=== PATIENT | female | born 1945 | race Caucasian/White ===

== ENCOUNTER → 2020-10-22 10:45 | Outpatient (CLI) | payer MEDICARE, SELFPAY ==
--- NOTE | ~2020-10-22 | MM_ITS ---
EXAMINATION: MM screening yasmeen BI w gigi HISTORY: Screening mammogram TECHNIQUE: Craniocaudal and mediolateral oblique 3-D tomosynthesis images were obtained and synthetic 2-D images were generated. CAD analysis was submitted and interpreted. COMPARISON: 10/02/2019, 08/22/2018, 08/17/2017 bilateral digital screening mammogram examinations BREAST PARENCHYMAL COMPOSITION: There are scattered areas of fibroglandular density. FINDINGS: Scattered bilateral benign calcifications are again noted. 3.6 x 5.8 mm circumscribed low-density opacity in the lower outer right breast. The low-density and c ircumscribed margins and halo sign are most consistent with benign process. There is no evidence of suspicious mass, calcification, or architectural distortion to suggest malig rigo in either breast. There has been no suspicious interval change. IMPRESSION: 1. No mammographic evidence of malignancy 2. Recommend routine screening mammography in one year. BI-RADS Category 2: Benign finding(s) Reviewed, dictated and finalized at location A. REPAIRER
== END ==
PROVIDERS: PCP Physician Assistant; Visit Provider Physician Assistant
DX: Z12.31 Encounter for screening mammogram for malignant neoplasm of breast (principal)
CPT/HCPCS: 77063; 77067

== ENCOUNTER → 2021-12-25 10:10 | Outpatient (CLI) | payer MEDICARE, SELFPAY ==
--- NOTE | ~2021-12-25 | MM_ITS ---
EXAMINATION: MM screening yasmeen BI w gigi HISTORY: Screening mammogram TECHNIQUE: Craniocaudal and mediolateral oblique 3-D tomosynthesis images were obtained and synthetic 2-D images were generated. CAD analysis was submitted and interpreted. COMPARISON: 10/22/2020, 10/02/2019, 08/22/2018 bilateral screening mammogram examinations BREAST PARENCHYMAL COMPOSITION: There are scattered areas of fibroglandular density. FINDINGS: 5 x 7 x 8 mm low-density circumscribed opacity is noted in the inner aspect of the lower ou ter quadrant of the right breast; the mammographic features suggest benign process; this is relativel y stable since 10/22/2020.. Scattered bilateral benign calcifications. There is no evidence of suspicious mass, calcification, or architectural distortion to suggest malignancy in either breast. There has been no suspicious interv al change. IMPRESSION: 1. No mammographic evidence of malignancy. 2. Recommend routine screening mammography in one year. BI-RADS Category 2: Benign finding(s). Reviewed, dictated and finalized at location C.
== END ==
PROVIDERS: PCP Family Medicine; Visit Provider Family Medicine
DX: Z12.31 Encounter for screening mammogram for malignant neoplasm of breast (principal)
CPT/HCPCS: 77063; 77067

== ENCOUNTER 2022-03-12 12:56 | Emergency (ER) | payer MEDICARE, SELFPAY ==
[2022-03-12 13:02] VITALS: BP 149/89; PULSE 88; RESP 20; TEMP 36.7; O2SAT 99
--- NOTE | 2022-03-12 13:08 | ED.SKABFB ---
HPI - Skin/Abscess/Foreign Bdy General Chief complaint: Skin/Abscess/Foreign Body Stated complaint: RASH Time Seen by Provider: 03/12/22 13:08 Source: patient Mode of arrival: ambulatory Limitations: no limitations History of Present Illness HPI narrative: 76-year-old female presented for complaint of rash to both arms for about 3 days. She denies changes to soap, detergent, lotion etc. She denies any known exposure to poison shanell. She has applied bojx-rug-cfzzjxh cream. Endorses itching, denies burning or drainage, lip or tongue swelling, shortness of breath, nausea, vomiting, fevers or chills complaint: rash Related Data Allergies Allergy/AdvReac Type Severity Reaction Status Date / Time diltiazem Allergy Unknown Unknown Verified 03/12/22 13:02 Penicillins Allergy Unknown Unknown Verified 03/12/22 13:02 prednisone Allergy Unknown Unknown Verified 03/12/22 13:02 Contrast Media Allergy Mild RASH Uncoded 03/12/22 13:02 Review of Systems Review of Systems: ROS negative except as stated in HPI. [facility] Past Medical History Medical History (Updated 03/12/22 @ 13:39 by Yanely Saenz APRN) Anxiety Benign hypertension (~06/13/18) Ganglion cyst of finger of right hand Hypertension Shingles Surgical History Surgical History History of cataract extraction Hx of hysterectomy, total Hx of tonsillectomy Family History Family History Father Hypertension Family history of malignant neoplasm Grandparent Hypertension Mother Family history of malignant neoplasm of uterus Other Carcinoma of colon Family history of malignant neoplasm of breast in first degree relative Social History Social History Smoking status: Never smoker Second hand tobacco smoke exposure: No Alcohol intake: current Alcohol use details: consumes 1 glass of wine rarely Substance use: never Substance use type: does not use Gender identity (if verbalized by the patient): Female Comments At time of signature, I have reviewed and agree with nursing past medical, surgical, social and family history unless otherwise noted. Please see nursing chart for further information. There is no relevant family history pertinent to the presenting complaint Exam Narrative: GENERAL: Well-appearing EYES: conjunctivae clear, and EOMI. ENT: Mucous membranes moist. Oropharynx without edema, erythema or lesions. NECK: Supple. No lymphadenopathy CHEST: Clear to auscultation. No respiratory distress. HEART: Regular rate and rhythm. SKIN: Warm, dry. Diffuse patches of erythematous circular lesions to bilateral forearms, left hand with mild swelling and many skin colored papules to dorsal surface c/w dermatitis. Left inner thigh with flat erythematous macular rash not c/w rash to arms. NEURO: Alert and oriented x3. PSYCH: Normal mood and affect Course Course Emergency Course: Patient is aware of diagnosis, understands and agrees to treatment plan. Anticipatory guidance given. Patient agrees to follow-up as directed and is aware of reasons to seek care at the emergency department. Portions of this record may have been created with voice recognition software Level of Care: Express Care Visit Vital Signs Vital signs: Reviewed MDM - Skin/Abscess/Foreign Bdy MDM Narrative Medical decision making narrative: Does not appear at this time to be erythema multiforme, bullous, SJS, TEN; Patient looks well, nontoxic no tongue, lip edema or other mucosal involvement, appropriate for initial outpatient treatment; She endorses allergy to prednisone. We discussed treatment with triamcinolone ointment and Benadryl and she will monitor and f/u with pcp or go to the ER/return if sx persist/worsen. Instructed patient to go to nearest ER immediately for any worsening symptoms including
== END 2022-03-12 13:35 | disposition home or self-care (01) ==
PROVIDERS: Emergency Provider Nurse Practitioner Family; PCP Family Medicine
DX: L25.9 Unspecified contact dermatitis, unspecified cause (principal); I10 Essential (primary) hypertension; Z98.49 Cataract extraction status, unspecified eye; F41.9 Anxiety disorder, unspecified
CPT/HCPCS: 99213; G0463

== ENCOUNTER → 2022-06-30 10:55 | Outpatient (CLI) | payer MEDICARE, SELFPAY ==
--- NOTE | ~2022-06-30 | DEXA_ITS ---
Bone Density Report Name: ENDY ELMORE Age: 76 Sex: Female Ethnicity: White Date of : 1945 Indication: osteopenia; parental hip fracture; height loss; hysterectomy; postmenopausal Referring Provider: MARELY VILLAGOMEZ Study: Bone densitometry was performed. Exam Date: June 30, 2022 Accession number: [id number] Bone Density: Region BMD T-score Z-score Classification AP Spine (L1-L4) 0.993 -0.5 1.9 Normal Femoral Neck (Left) 0.802 -0.4 1.7 Normal Total Hip (Left) 0.872 -0.6 1.2 Normal Femoral Neck (Right) 0.673 -1.6 0.5 Osteopenia Total Hip (Right) 0.747 -1.6 0.2 Osteopenia Total Hip Mean 0.810 -1.1 0.7 Osteopenia World Health Organization criteria for BMD impression classify patients as: Normal (T-score at or above -1.0), Osteopenia (T-score between -1.0 and -2.5), or Osteoporosis (T-score at or below -2.5). 10-year Fracture Risk(1): Major Osteoporotic Fracture 19% Hip Fracture 9.5% Reported Risk Factors: [place] (), Neck BMD=0.673, BMI=30.4, parental fracture (1) FRAX(R) Version 3.08. Fracture probability calculated for an untreated patient. Fracture probability may be lower if the patient has received treatment. Previous Exams: Region Exam Age BMD T-score BMD Change BMD Change Date g/cm2 vs Baseline vs Previous AP Spine(L1-L4) 06/30/2022 76 0.993 -0.5 -0.042* 0.021 07/04/2012 66 0.972 -0.7 -0.064* 0.037* 06/20/2010 64 0.935 -1.0 -0.101* -0.101* 06/08/2007 61 1.036 -0.1 Total Hip(Left) 06/30/2022 76 0.872 -0.6 -0.031* 0.024 07/04/2012 66 0.848 -0.8 -0.054* 0.005 06/20/2010 64 0.843 -0.8 -0.060* -0.060* 06/08/2007 61 0.902 -0.3 Total Hip(Right) 06/30/2022 76 0.747 -1.6 -0.100* -0.009 07/04/2012 66 0.755 -1.5 -0.092* -0.035* 06/20/2010 64 0.791 -1.2 -0.056* -0.056* 06/08/2007 61 0.847 -0.8 *Denotes significance at 95% confidence level, LSC for AP Spine = 0.022 g/cm2, LSC for Total Hip = 0.027 g/cm2 Clinical Information Provided by Patient: Parent has had a hip fracture Has the following medical conditions: Hysterectomy Patient maximum height was 62 Menopause Age: 58 No regular weight bearing exercise Does not regularly consume dairy products Drinks caffeinated beverages Onset of menses at age 14 Number of children 0 Missed period for more than 6 months in a row
== END ==
PROVIDERS: PCP Family Medicine; Visit Provider Family Medicine
DX: Z78.0 Asymptomatic menopausal state (principal); M85.851 Other specified disorders of bone density and structure, right thigh
CPT/HCPCS: 77080

== ENCOUNTER → 2023-03-16 07:16 | Outpatient (CLI) | payer MEDICARE, SELFPAY ==
--- NOTE | ~2023-03-16 | MM_ITS ---
EXAMINATION: MM screening yasmeen BI w gigi HISTORY: Screening mammogram TECHNIQUE: Craniocaudal and mediolateral oblique 3-D tomosynthesis images were obtained and synthetic 2-D images were generated. CAD analysis was submitted and interpreted. COMPARISON: 12/21/2021, 10/22/2020, 10/02/2019 bilateral screening mammogram examinations BREAST PARENCHYMAL COMPOSITION: There are scattered areas of fibroglandular density. FINDINGS: Interval decreased size of circumscribed 7 mm opacity of 12/21/2021 2 approximately 4.5 mm d imension, lower outer quadrant right breast. New circumscribed approximate 4.5 mm opacity in the inner aspect of the very posterior lower inner qu adrant of the right breast. New approximately 3 mm circumscribed opacity in the lower inner quadrant of the left breast. Bilatera l diagnostic mammography and breast ultrasound examination are recommended. Scattered bilateral benign calcifications are again noted. No architectural distortion, skin thickeni ng or retraction is detected. IMPRESSION: 1. New bilateral breast masses 2. Bilateral diagnostic mammography and breast ultrasound examination are recommended. BI-RADS Category 0: Incomplete: Needs additional imaging evaluation. Reviewed, dictated and finalized at location A. IMPRESSION: 1. New bilateral breast masses 2. Bilateral diagnostic mammography and breast ultrasound examination are recom mended. BI-RADS Category 0: Incomplete: Needs additional imaging evaluation.
== END ==
PROVIDERS: PCP Family Medicine; Visit Provider Physician Assistant Medical
DX: Z12.31 Encounter for screening mammogram for malignant neoplasm of breast (principal); R92.8 Other abnormal and inconclusive findings on diagnostic imaging of breast
CPT/HCPCS: 77063; 77067

== ENCOUNTER 2023-03-19 15:05 | Emergency (ER) | payer MEDICARE, SELFPAY ==
--- NOTE | ~2023-03-19 | XR_ITS ---
EXAM: XR knee RT min 4V DATE: 03/19/2023 16:18 HISTORY: posterior knee pain, STEPPED OFF PORCH YESTERDAY . COMPARISON: None available. FINDINGS: Decreased mineralization. No fracture or dislocation. No lytic or blastic lesion. Mild tri compartmental osteoarthritis. Small joint effusion. No erosion or periosteal change. Soft tissues wit hin normal limits. IMPRESSION: No acute osseous finding in the right knee. Reviewed, dictated and finalized at location K.
[2023-03-19 15:20] VITALS: BP 152/87; PULSE 78; RESP 16; TEMP 36.1; O2SAT 99
--- NOTE | 2023-03-19 15:52 | ED.LOWEXIN ---
HPI - Extremity Injury (Lower) General Chief Complaint: Extremity Injury, Lower Stated Complaint: right leg pain Time Seen by Provider: 03/19/23 15:27 History of Present Illness HPI Narrative: 77-year-old female reports for evaluation of posterior right knee pain that started 6 weeks ago. Patient states she has had a dull ache intermittently in both of her knees, worse in her right. States approximately 2 days ago, she stepped off of a stair and felt a pain in the back of her knee. Reports today she was sliding into a ochoa and felt another pain in the back of her knee, since then she has not been able to ambulate due to pain that worsens with standing. She reports taking 1 dose of Tylenol and 1 dose of Aleve daily without relief. She denies knee swelling, fever, body aches or chills, history of knee surgery. She has not been evaluated by an orthopedist in the past. Last dose of Tylenol today was 930 this morning. Related Data Allergies Allergy/AdvReac Type Severity Reaction Status Date / Time diltiazem Allergy Unknown Unknown Verified 03/19/23 15:52 Penicillins Allergy Unknown Unknown Verified 03/19/23 15:52 prednisone Allergy Unknown Unknown Verified 03/19/23 15:52 Contrast Media Allergy Mild RASH Uncoded 03/19/23 15:52 Review of Systems Review of Systems: CONSTITUTIONAL: Denies fever, chills EYES: Denies visual changes, redness, or discharge. ENT: Denies rhinorrhea, congestion, sore throat, or otalgia. CARDIOVASCULAR: Denies chest pain, palpitations, or edema. RESPIRATORY: Denies cough or dyspnea. GASTROINTESTINAL: Denies abdominal pain, nausea, vomiting, or diarrhea. GENITOURINARY: Denies dysuria or hematuria. SKIN: Denies rash or itching. MUSCULOSKELETAL: See HPI NEUROLOGIC: Denies headache, numbness, dizziness, or weakness. PSYCHIATRIC: Denies anxiety or depression. [facility] Past Medical History Medical History (Updated 03/19/23 @ 16:40 by Nita Weaver PA-C) Anxiety Benign hypertension (~06/13/18) Ganglion cyst of finger of right hand Hypertension Shingles Surgical History Surgical History History of cataract extraction Hx of hysterectomy, total Hx of tonsillectomy Family History Family History Father Hypertension Family history of malignant neoplasm Grandparent Hypertension Mother Family history of malignant neoplasm of uterus Other Carcinoma of colon Family history of malignant neoplasm of breast in first degree relative Social History Social History Smoking status: Never smoker Second hand tobacco smoke exposure: No Alcohol intake: current Alcohol use details: consumes 1 glass of wine rarely Substance use: never Substance use type: does not use Lack of Transportation: No Lack of Food: Never True Current Housing: I Have Housing Concerned About Future Housing: No Difficulty Paying Gas/Electric Bills: No Difficulty Paying for Meds: No Currently Unemployed: No Education: High School Diploma/GED Difficulty w/ Childcare or Family Care: No Living arrangements: with family Gender identity (if verbalized by the patient): Female Sexual Orientation (if Verbalized by the Patient): Straight or Heterosexual Spiritual care concerns: No Agree to blood products: Yes Exam Narrative: GENERAL: Well-appearing, in no acute distress. HEAD: Normocephalic NECK: Supple. CHEST: No respiratory distress. Clear to auscultation, no adventitious breath sounds. HEART: Regular rate and rhythm. No murmur heard. Normal peripheral pulses. EXTREMITIES: Right knee with tenderness to the popliteal fossa. No tenderness to remainder of knee or lower extremity. No effusion or overlying skin changes, no warmth or erythema. Full active and passive range of motion of knee. Negative posterior and anterior dr
[2023-03-19] MEDS: ACETAMINOPHEN 500 MG TABLET 1000 MG PO (15:59)
--- NOTE | 2023-03-19 16:07 | PC.NURSE ---
Pt to XRAY via W/C at this time.
[2023-03-19 16:56] VITALS: BP 147/89; PULSE 74; RESP 18; O2SAT 99
== END 2023-03-19 16:58 | disposition home or self-care (01) ==
PROVIDERS: Emergency Provider Physician Assistant; PCP Family Medicine
DX: M17.11 Unilateral primary osteoarthritis, right knee (principal); I10 Essential (primary) hypertension; Z98.49 Cataract extraction status, unspecified eye; Z90.710 Acquired absence of both cervix and uterus
CPT/HCPCS: 73564; 99283; A9270

== ENCOUNTER → 2023-04-13 08:20 | Outpatient (CLI) | payer MEDICARE, SELFPAY ==
--- NOTE | ~2023-04-13 | MMUS_ITS ---
EXAMINATION: MM diagnostic yasmeen BI w gigi, US breast BI limited HISTORY: New bilateral breast masses reported on 03/16/2023 screening mammogram: Lower inner right and left breast TECHNIQUE: Additional 3-D tomosynthesis images of both breasts were performed and synthetic 2-D image s were generated. CAD analysis was submitted and interpreted. High resolution bilateral targeted han st ultrasound was performed. COMPARISON: 03/16/2022 bilateral screening mammogram FINDINGS: MAMMOGRAPHIC FINDINGS: Circumscribed approximately 4 mm mass in the posterior lower inner right breast; the low-density and circumscribed margins suggest benign process. Circumscribed 3 mm low-density opacity in the anterior lower inner left breast, with benign mammograp hic features. ULTRASOUND: Right breast: 6:00 3 cm from nipple: Circumscribed 4.5 x 5 x 4.6 mm sonolucency without internal vascularity or pos terior shadowing, likely a small cyst Left breast: 9:00 5 cm from nipple: 3 x 2.6 x 3.3 mm circumscribed sonolucency without posterior shadowing, consis tent with small cyst IMPRESSION: 1. Benign findings 2. Routine annual mammographic screening is recommended BI-RADS Category 2: Benign finding(s). Reviewed, dictated and finalized at location A. IMPRESSION: 1. Benign findings 2. Routine annual mammographic screening is recommended BI-RADS Category 2: Benign finding(s).
== END ==
PROVIDERS: PCP Family Medicine; Visit Provider Physician Assistant
DX: R92.8 Other abnormal and inconclusive findings on diagnostic imaging of breast (principal)
CPT/HCPCS: 76642; 77062; 77066; G0279

== ENCOUNTER 2023-05-13 09:00 | Outpatient (RCR) | payer MEDICARE, SELFPAY ==
--- NOTE | 2023-04-15 14:55 | PTOPEVAL1 ---
Assessment and note entered by Eladio Samano, PT Evaluation Information Assessment Status Evaluation Diagnosis OA of R knee Onset 01/02/23 Subjective Information Reports that she is unsure how she hurt her knee or what caused it. She recently received a cortisone injection and notes that she saw immediate improvement. States that she feels she is nearly back to normal function but is concerned about the injection wearing off and pain returning . Reported Pain Level Pain Score 1: Self Report Additional Pain Score Comments Left knee anterior medial knee Assessment PT Clinical Summary Patient presents with signs and symptoms consistent with OA of lesly knees. Objectively her R knee is showing better motion and stability than uninvolved which is likely transferring stress onto R knee and provocation symptoms and irritation in R knee. I feel she significantly benefited from cortisone injection and will benefit from skilled therapy to address noted mm and mobility deficits for custodial success and prevention of serious injury of R knee. Plan of Care Interventions Electrical Stimulation,Manual Therapy,Neuro Re- education,Therapeutic Activities,Therapeutic Exercise PT Services Indicated Yes These treatments will address the objective and functional deficits as defined above. The patient will be advanced safely and appropriately in order for the patient to progress towards his/her prior level of function. Additional exercises will be introduced and as well as a comprehensive home exercise program upon discharge, if needed, ?to ensure carryover of functional gains achieved in the clinic. This treatment plan has been reviewed and agreement upon by the patient.
--- NOTE | 2023-04-15 14:56 | OPREHPOC ---
Outpatient Therapy Plan of Care This is a Multidisciplinary Plan of Care that may contain components documented by all disciplines (PT, OT, and ST.) PT Problem 1 PT Problem #1 Knowledge Deficit PT Goal 1 Goal Patient will be independent with hip mobility and knee strength HEP Target Visit 8 PT Problem 2 PT Problem #2 Impaired Range of Motion PT Goal 1 Goal Demonstrate 0 degrees terminal L knee extension to prevent off load of R knee Target Visit 8 PT Problem 3 PT Problem #3 Impaired Strength PT Goal 1 Goal Improve gross lesly knee strength to 5/5 to prevent mm imbalance during functional activity PT Problem 4 PT Problem #4 Impaired Functional Mobil PT Goal 1 Goal Demonstrate ability to reciprocally ascend and descend stairs pain free to do laundry in home Target Visit 8
--- NOTE | 2023-05-13 10:09 | PTOPDC ---
Assessment and note entered by Eladio Samano, PT Evaluation Information Assessment Status Discharge Diagnosis OA of R knee Onset 01/02/23 Subjective Information Reports that overall she feels pretty good. Therapy has really helped with walking and ADL. She only has issues anymore if she does a lot of gardening including bending and lifting. Stairs are much better with decreased pain. She is overall sleeping a lot better as well. Very satisfied with progress. Feels ready for discharge at this time. Reported Pain Level Pain Score 0: Self Report Assessment PT Clinical Summary Patient made excellent progress with skilled therapy at this time. She demonstrated improved gait cycle, functional mobility on stairs and squatting, pain reduction, and strength. She continues to show some deficits in L knee terminal extension, but these may be functional at this time. Overall she is suitable for discharge to [facility] at this time. Plan of Care PT Services Indicated Yes
--- NOTE | 2023-05-13 10:12 | OPREHPOC ---
Outpatient Therapy Plan of Care This is a Multidisciplinary Plan of Care that may contain components documented by all disciplines (PT, OT, and ST.) PT Problem 1 PT Problem #1 Knowledge Deficit PT Goal 1 Goal Patient will be independent with hip mobility and knee strength HEP Target Visit 8 Progress Met PT Problem 2 PT Problem #2 Impaired Range of Motion PT Goal 1 Goal Demonstrate 0 degrees terminal L knee extension to prevent off load of R knee Target Visit 8 Progress Partially Met Comment Demonstrate -2 degres of L knee extension PT Problem 3 PT Problem #3 Impaired Strength PT Goal 1 Goal Improve gross lesly knee strength to 5/5 to prevent mm imbalance during functional activity Progress Met PT Problem 4 PT Problem #4 Impaired Functional Mobil PT Goal 1 Goal Demonstrate ability to reciprocally ascend and descend stairs pain free to do laundry in home Target Visit 8 Progress Met
== END 2023-05-13 13:21 | disposition home or self-care (01) ==
LOC: ANHPT 09:00
PROVIDERS: PCP Family Medicine; Visit Provider Orthopaedic Surgery
DX: M17.11 Unilateral primary osteoarthritis, right knee (principal)
CPT/HCPCS: 97110; 97140; 97161; 97530

== ENCOUNTER 2023-10-03 08:04 | Emergency (ER) | payer MEDICARE, SELFPAY ==
--- NOTE | ~2023-10-03 | XR_ITS ---
EXAMINATION: XR elbow LT min 3V DATE: 10/03/2023 08:57 INDICATION: Left elbow injury. TECHNIQUE: 4 views of left elbow were obtained. COMPARISON: None. FINDINGS: There is a fracture involving the lateral half of the articular surface of radial head with up to 2 mm impaction. There is mild elbow joint osteoarthritis. There is an elbow joint effusion. IMPRESSION: 1. Radial head fracture. 2. Mild elbow joint osteoarthritis. 3. Elbow joint effusion. Reviewed, dictated and finalized at location A. RPRISE ACCOUNT EXECUTIVE
--- NOTE | 2023-10-03 08:11 | ED.UPPEXIN ---
HPI - Extremity Injury (Upper) General Chief Complaint: Extremity Injury, Upper <Katrina Dimas NP - Last Filed: 10/03/23 10:13> Stated Complaint: L ARM INJURY <Katrina Dimas NP - Last Filed: 10/03/23 10:13> Time Seen by Provider: 10/03/23 08:11 <Katrina Dimas NP - Last Filed: 10/03/23 10:13> Source: patient <Katrina Dimas NP - Last Filed: 10/03/23 10:13> Mode of arrival: ambulatory <Katrina Dimas NP - Last Filed: 10/03/23 10:13> Limitations: no limitations <Katrina Dimas NP - Last Filed: 10/03/23 10:13> History of Present Illness HPI narrative: 77-year-old female presents with complaint of left elbow pain and swelling. Patient reports yesterday she was walking and [employer] parking lot and slipped on ice, fell down on to left arm. Reports yesterday she could not move her left arm at all due to pain but is somewhat better today. Distal neurovascularly intact. Patient denies hitting head. Was able to get up on her own. Patient requesting x-ray to make sure she does a fracture. All systems reviewed and negative except as noted above. <Katrina Dimas NP - Last Filed: 10/03/23 10:13> Related Data Home Medications: Home Medications Medication Instructions Recorded Confirmed calcium carbonate 500 mg calcium 500 mg PO DAILY 04/13/23 10/03/23 (1,250 mg) chewable tablet (Calcium 500) mecobalamin (vitamin B12) 1,000 1,000 mcg PO DAILY 04/13/23 10/03/23 mcg chewable tablet [id number]-[id number] 8 mg-folic 400 1 tablet PO DAILY 04/23/23 10/03/23 mcg-K 50 mcg-lutein 300 mcg tablet (Centrum Silver Women) <Katrina Dimas NP - Last Filed: 10/03/23 10:13> Allergies/Adverse Reactions: Allergies Allergy/AdvReac Type Severity Reaction Status Date / Time diltiazem Allergy Unknown Rash Verified 10/03/23 08:19 Penicillins Allergy Unknown Tachycardia Verified 10/03/23 08:19 prednisone Allergy Unknown Rash Verified 10/03/23 08:19 Contrast Media Allergy Mild RASH Uncoded 10/03/23 08:19 <Katrina Dimas NP - Last Filed: 10/03/23 10:13> Review of Systems Review of Systems: CONSTITUTIONAL: Denies fever, chills, or sweats. EYES: Denies visual changes, redness, or discharge. ENT: Denies rhinorrhea, congestion, sore throat, or otalgia. CARDIOVASCULAR: Denies chest pain, palpitations, or edema. RESPIRATORY: Denies cough or dyspnea. GASTROINTESTINAL: Denies abdominal pain, nausea, vomiting, or diarrhea. GENITOURINARY: Denies dysuria or hematuria. SKIN: Denies rash or itching. MUSCULOSKELETAL: Denies back pain or myalgia. Reports pain and swelling to left elbow. NEUROLOGIC: Denies headache, numbness, or weakness. PSYCHIATRIC: Denies anxiety or depression. All other systems reviewed are negative, except as documented in HPI. <Katrina Dimas NP - Last Filed: 10/03/23 10:13> [facility] Past Medical History Medical History: Medical History Anxiety Benign hypertension (~06/13/18) Ganglion cyst of finger of right hand Hypertension Right knee DJD Shingles <Katrina Dimas DIRECT SALES PROFESSIONAL - Last Filed: 10/03/23 10:13> Surgical History Surgical History: Surgical History History of cataract extraction Hx of hysterectomy, total Hx of tonsillectomy <Katrina Dimas NP - Last Filed: 10/03/23 10:13> Family History Family History: Family History Father Hypertension Family history of malignant neoplasm Grandparent Hypertension Mother Family history of malignant neoplasm of uterus Other Carcinoma of colon Family history of malignant neoplasm of breast in first degree relative <Katrina Dimas NP - Last Filed: 10/03/23 10:13> Social History Social History: Social History (Reviewed 04/23/23 @ 10:55 by Debbie Limon C
[2023-10-03 08:20] VITALS: BP 141/107; PULSE 94; RESP 20; TEMP 37.1; O2SAT 100
--- NOTE | 2023-10-03 10:09 | PC.NURSE ---
POSTERIOR LONG ARM OCL APPLIED WITH LEFT ARM SLING. CAPPILARY REFILL LESS THAN 3 SEC.
== END 2023-10-03 10:13 | disposition home or self-care (01) ==
PROVIDERS: Emergency Provider Nurse Practitioner Family; PCP Family Medicine
DX: S52.125A Nondisplaced fracture of head of left radius, initial encounter for closed fracture (principal); M19.022 Primary osteoarthritis, left elbow; M25.422 Effusion, left elbow; I10 Essential (primary) hypertension; Z79.899 Other long term (current) drug therapy; W00.0XXA Fall on same level due to ice and snow, initial encounter; Y92.481 Parking lot as the place of occurrence of the external cause
CPT/HCPCS: 29105; 73080; 99214; A4565; G0463

== ENCOUNTER 2024-05-23 07:12 | Outpatient (CLI) | payer MEDICARE, SELFPAY ==
--- NOTE | ~2024-05-23 | MM_ITS ---
EXAMINATION: MM screening [facility] BI w gigi HISTORY: Screening TECHNIQUE: Craniocaudal and mediolateral oblique 3-D tomosynthesis images were obtained and synthetic 2-D images were generated. CAD analysis was submitted and interpreted. COMPARISON: Comparison to multiple prior studies sequentially, with oldest reviewed study dated . . BREAST PARENCHYMAL COMPOSITION: There are scattered areas of fibroglandular density. FINDINGS: There is no evidence of suspicious mass, calcification, or architectural distortion to sugg est malignancy in either breast. There has been no suspicious interval change. IMPRESSION: 1. No mammographic evidence of malignancy. 2. Recommend routine screening mammography in one year. BI-RADS Category 1: Negative Reviewed, dictated and finalized at location B.
== END 2024-05-23 07:13 ==
PROVIDERS: PCP Family Medicine; Visit Provider Family Medicine
DX: Z12.31 Encounter for screening mammogram for malignant neoplasm of breast (principal)
CPT/HCPCS: 77063; 77067

== ENCOUNTER 2024-08-06 15:26 | Observation (INO) | payer MEDICARE, SELFPAY ==
--- NOTE | ~2024-08-06 | CT_ITS ---
EXAMINATION: CT abdomen pelvis wo con DATE: 08/06/2024 19:43 INDICATION: Abdominal pain, gastrointestinal bleeding TECHNIQUE: Computed tomography (CT) of the abdomen and pelvis was performed without intravenous contr ast. Automated exposure control and iterative reconstruction technique were employed. Exam dose: 468 .69 mGy-cm total exam DLP. COMPARISON: None. FINDINGS: Mild linear atelectasis or scarring at the lung bases. No pulmonary infiltrate or consolida tion of the included lower lung zones. Normal heart size. No pericardial or pleural effusion. The liver, gallbladder, bile ducts, pancreas, pancreatic duct and spleen as well as the adrenal gland s are unremarkable. 2.5 x 3.3 cm anterolateral upper pole left renal heterogeneous solid mass lesion, suspicious for hype rnephroma. Consider further evaluation with MRI. 3 x 3.3 cm anterior lower pole exophytic left renal mass with attenuation of 21 Hounsfield units. 2.5 mm and pinpoint nonobstructing lower pole left renal calculi. The urinary bladder is unremarkable. Normal appendix. No bowel obstruction or intraperitoneal free air. Minimal colonic diverticulosis of sigmoid colon. There is a long segment of prominent mural thickening along the distal descending colon and proximal sigmoid colon. There is pericolic soft tissue infiltration along the thickened segment. Differenti al diagnosis includes colon cancer, less likely diverticulitis. Multi-level degenerative disc disease of the lumbar spine. IMPRESSION: Prominent mural thickening of long segment of distal descending and proximal sigmoid col on, with pericolic fat infiltration, suspicious for colon cancer. Diverticulitis is less likely. 3 x 3.3 cm lower pole exophytic left renal nonspecific mass 2.5 x 3.3 cm anterolateral upper pole left renal heterogeneous solid mass lesion, suspicious for hype rnephroma. Consider further evaluation with MRI. Pinpoint nonobstructing left renal calculi Minimal diverticulosis of the sigmoid colon Reviewed, dictated and finalized at Location A. Reviewed, dictated and finalized at location A. CHER LARD IMPRESSION: Prominent mural thickening of long segment of distal descending an d proximal sigmoid colon, with pericolic fat infiltration, suspicious for colon cancer. Diverticulitis is less likely. 3 x 3.3 cm lower pole exophytic left renal nonspecific mass 2.5 x 3.3 cm anterolateral upper pole left renal heterogeneous solid mass lesio n, suspicious for hypernephroma. Consider further evaluation with MRI. Pinpoint nonobstructing left renal calculi Minimal diverticulosis of the sigmoid colon
--- NOTE | ~2024-08-06 | MR_ITS ---
EXAMINATION: MR abdomen wo/w con DATE: 08/07/2024 14:18 INDICATION: Left kidney masses. TECHNIQUE: Magnetic resonance imaging (MRI) of the abdomen was performed without and with 15 mL Multi Julissa intravenous contrast. COMPARISON: CT abdomen and pelvis 08/06/2024 FINDINGS: The liver, gallbladder, and spleen are normal. 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 The adrenal glan ds are normal. There are cysts in the kidneys measuring up to 3.5 cm on the left. There is a 3.3 cm h emorrhagic cyst in left kidney. There is wall thickening of the sigmoid colon and distal descending c olon with surrounding fat stranding. There are no pathologically enlarged lymph nodes. There is a sma ll volume of pelvic ascites. IMPRESSION: 1. Benign cysts in the kidneys. 2. Wall thickening of the sigmoid colon and distal descending colon, consistent with colitis versus m alignancy. 3. Small volume of pelvic ascites. Reviewed, dictated and finalized at location A. URER MACHINE IMPRESSION: 1. Benign cysts in the kidneys. 2. Wall thickening of the sigmoid colon and distal descending colon, consistent with colitis versus malignancy. 3. Small volume of pelvic ascites.
[2024-08-06 15:30] VITALS: BP 152/101; PULSE 102; RESP 16; TEMP 36.4; O2SAT 99
--- NOTE | 2024-08-06 18:35 | ED_ITS ---
HPI - GI Bleed General Chief complaint: GI Bleed Stated complaint: rectal bleeding Time Seen by Provider: 08/06/24 18:18 History of Present Illness HPI Narrative: 78-year-old female with history of hypertension presents to emergency department for GI bleed that started today. Patient states this 100 11:00 p.m. she had sharp abdominal pain diffusely. This was followed by episode of d iarrhea. States today she has had intermittent diffuse abdominal pain and had 2 episodes of hematochezia. States the blood was bright red and filled the toilet which prompted her to come to the ED. She presents with her at bedside. She states this had happened to her once before several years ago. She underwent a colonoscopy and was found have colitis. She denies fever, s/p, melena. She is not on any anticoagulants. she denies chest pain, shortness of breath, lightheadedness or syncope Related Data Home Medications Medication Instructions Recorded Confirmed calcium carbonate (Calcium 500) 500 mg PO DAILY 04/13/23 10/13/23 mecobalamin (vitamin B12) 1,000 1,000 mcg PO DAILY 04/13/23 10/13/23 mcg chewable tablet [id number]-[id number]-[id number] 8 mg-folic 400 1 tablet PO DAILY 04/23/23 10/13/23 mcg-K 50 mcg-lutein 300 mcg tablet (Centrum Silver Women) Allergies Allergy/AdvReac Type Severity Reaction Status Date / Time diltiazem Allergy Unknown Rash Verified 08/06/24 18:45 Penicillins Allergy Unknown Tachycardia Verified 08/06/24 18:45 prednisone Allergy Unknown Rash Verified 08/06/24 18:45 Contrast Media Allergy Mild RASH Uncoded 08/06/24 18:45 Review of Systems Review of Systems: All systems reviewed & are unremarkable except as noted in HPI and below PMFSH Past Medical History Medical History Anxiety Benign hypertension (~06/13/18) Ganglion cyst of finger of right hand Hypertension Left knee DJD Right knee DJD Shingles Surgical History Surgical History History of cataract extraction Hx of hysterectomy, total Hx of tonsillectomy Family History Family History Father Hypertension Family history of malignant neoplasm Grandparent Hypertension Mother Family history of malignant neoplasm of uterus Other Carcinoma of colon Family history of malignant neoplasm of breast in first degree relative Social History Social History Smoking status: Never smoker Second hand tobacco smoke exposure: No Alcohol intake: current Alcohol use details: consumes 1 glass of wine rarely Substance use: never Substance use type: does not use Lack of Transportation: No Lack of Food: Never True Current Housing: I Have Housing Concerned About Future Housing: No Difficulty Paying Gas/Electric Bills: No Difficulty Paying for Meds: No Currently Unemployed: No Education: High School Diploma/GED Difficulty w/ Childcare or Family Care: No Living arrangements: with family Gender identity (if verbalized by the patient): Female Sexual Orientation (if Verbalized by the Patient): Straight or Heterosexual Spiritual care concerns: No Agree to blood products: Yes Exam Narrative: GENERAL: Well-appearing, well-nourished, and in no acute distress. HEAD: Normocephalic, atraumatic. EYES: PERRLA and EOMI. ENT: Nares clear, no rhinorrhea or epistaxis. Mucous membranes moist. NECK: Supple. CHEST: Clear to auscultation. No respiratory distress. HEART: Regular rate and rhythm. No murmur heard. Normal peripheral pulses. ABDOMEN: Soft, nontender, nondistended, normal active bowel sounds. no rebound, guarding or rigidity. No CVA tenderness. EXTREMITIES: Normal range of motion. No edema. SKIN: Warm, dry, no rash. NEURO: No focal deficits. Alert and oriented x3 Course Vital Signs Vital signs: Vital Signs Temperature 97.6 F 08/06/24 15:30 Pulse Rate 102 H 08/06/24 15:30 Respiratory Rate 16 08/06/24 15:30 Blood Pressure 152/101 H 08/06/24 15:30 Pulse Oximetry 99 08/06/24 15:30 Temperature 97.6 F 08/06/24 15:30 Pulse Rate 100 08/06/24 21:12 Respiratory Rate 18 08/06/24 21:12 Blood Pressure 162/92 H 08/06/24 21:12 Pulse Oximetry 100 08/06/24 21:12 MDM - GI Bleed MDM Narrative Medical decision making narrative: 78-year-old female presents to the emergency department for a GI bleed today. See HPI for further history. Triage vitals with blood pressure 152/101 tachycardia 102. She is afebrile and nontoxic appearing. Abdomen is soft and nontender. CBC with leukocytosis of 12.8, stable hemoglobin of 14.5. Chemistries with a BUN of 27 creatinine 0.8. LFTs are unremarkable. Lipase is normal. Lactic acid normal. Coags are normal. CT abdomen pelvis IMPRESSION: Prominent mural thickening of long segment of distal descending and proximal sigmoid colon, with pericolic fat infiltration, suspicious for colon cancer. Diverticulitis is less likely. 3 x 3.3 cm lower pole exophytic left renal nonspecific mass 2.5 x 3.3 cm anterolateral upper pole left renal heterogeneous solid mass lesion, suspicious for hypernephroma. Consider further evaluation with MRI. Pinpoint nonobstructing left renal calculi Minimal diverticulosis of the sigmoid colon workup discussed with the patient. She was given Tylenol, Protonix and IV fluids and is resting comfortably in exam bed. I discussed the case with GI physician, Dr. Alvarado for a is who agrees to consult on admission. discussed case with the hospitalist, Dr. Pierre, who agrees to the plan for admission. Lab Data 08/06/24 18:41 08/06/24 18:41 Labs: Lab Results 08/06/24 Range/Units 18:41 WBC 12.8 H (4.5-10.0) K/mm3 RBC 4.76 (4.2-5.4) M/mm3 Hgb 14.5 (12.0-15.0) g/dL Hct 43.4 (37.0-47.0) % MCV 91.2 (80-100) fl MCH 30.5 (26-34) pg MCHC 33.4 (32-36) g/dl RDW 12.9 (11.5-14.5) % Plt Count 227 (150-375) k/mm3 MPV 10.8 H (7.4-10.4) fl Immature Gran % (Auto) 0.2 (0-0.5) % Neut % (Auto) 79.9 H (45.5-73.1) % Lymph % (Auto) 12.9 L (18.3-44.2) % [place] % (Auto) 6.6 (2.6-8.5) % Eos % (Auto) 0.2 (0-4.4) % Baso % (Auto) 0.2 (0.2-1.2) % Lymph # (Auto) 1.65 (0.9-3.2) K/mm3 [place] # (Auto) 0.8 H (0.1-0.6) K/mm3 Eos # (Auto) 0.0 (0-0.3) K/mm3 Baso # (Auto) 0.0 (0.0-0.1) K/mm3 Abs Immat Gran (auto) 0.03 (0.00-0.031) K/mm3 Absolute Neuts (auto) 10.2 H (1.3-6.7) K/mm3 Absolute Nucleated RBC 0.000 (0.0-0.012) K/mm3 Nucleated RBC % 0.0 (0.0-0.2) % PT 12.6 (11.1-14.7) Seconds INR 0.9 APTT 23.8 (22.3-36.8) Seconds Sodium 138 (137-145) mmol/L Potassium 3.7 (3.4-5.0) mmol/L Chloride 103 (98-107) mmol/L Carbon Dioxide 26 (22-30) mmol/L Anion Gap 9 (4-12) mmol/L BUN 27 H (7-17) mg/dL Creatinine 0.80 (0.7-1.0) mg/dL Estim Creat Clear Calc 48 ml/min Estimated GFR > 60 (59 - ) Glucose 116 H (65-110) mg/dL Lactic Acid 1.2 (0.7-2.0) mmol/L Calcium 9.2 (8.4-10.2) mg/dL Total Bilirubin 0.6 (0.2-1.3) mg/dL AST 23 (14-36) U/L ALT 20 (6-35) U/L Alkaline Phosphatase 82 (38-126) U/L Total Protein 8.0 (6.3-8.2) g/dL Albumin 4.3 (3.5-5.1) g/dL Lipase 144 (23-300) U/L Discharge Plan Discharge Clinical Impression: Acute lower GI bleeding Patient Disposition: Still a Patient Condition: Stable Prescriptions: No Action hydrocodone-acetaminophen 5-325 mg tablet 1 tablet PO Q6H PRN (Reason: pain) 3 Days Qty: 12 0RF naloxone [Narcan] 4 mg/actuation spray,non-aerosol 4 mg intranasal Q2M Qty: 2 0RF Rx Instructions: spray 1 dose into ONE nostril; alternate nostrils w each dose until help arrives Centrum Silver Women 8 mg iron-400 mcg-50 mcg tablet 1 tablet PO DAILY triamcinolone acetonide 0.1 % cream 1 applic topical BID Qty: 80 0RF mecobalamin (vitamin B12) 1,000 mcg tablet,chewable 1,000 mcg PO DAILY calcium carbonate [Calcium 500] 500 mg calcium (1,250 mg) tablet,chewable 500 mg PO DAILY amlodipine 2.5 mg tablet 2.5 mg PO DAILY Qty: 90 3RF lorazepam 0.5 mg tablet 0.5 mg PO Q8H PRN (Reason: anxiety) Qty: 90 0RF lisinopril 40 mg tablet 40 mg PO DAILY Qty: 90 1RF Follow-up/Referrals: Radha Irene MD [Primary Care Provider] -
[2024-08-06 18:44] VITALS: BP 154/89; PULSE 100; RESP 18; O2SAT 99
[2024-08-06 18:46] LABS: Basophils Percent Auto 0.2 % (0.2-1.2); Eosinophils Percent Auto 0.2 % (0-4.4); Hematocrit 43.4 % (37.0-47.0); Hemoglobin 14.5 g/dL (12.0-15.0); Immature Granulocyte Absolute 0.03 K/mm3 (0.00-0.031); Immature Granulocyte Percent A 0.2 % (0-0.5); Lymphocytes Absolute Auto 1.65 K/mm3 (0.9-3.2); Lymphocytes Percent Auto 12.9 % (18.3-44.2); Mean Corpuscular HGB Conc 33.4 g/dl (32-36); Mean Corpuscular Hemoglobin 30.5 pg (26-34); Mean Corpuscular Volume 91.2 fl (80-100); Mean Platelet Volume 10.8 fl (7.4-10.4); Monocytes Absolute Auto 0.8 K/mm3 (0.1-0.6); Monocytes Percent Auto 6.6 % (2.6-8.5); Neutrophils Absolute Auto 10.2 K/mm3 (1.3-6.7); Neutrophils Percent Auto 79.9 % (45.5-73.1); Platelet Count Result 227 k/mm3 (150-375); Red Blood Count 4.76 M/mm3 (4.2-5.4); Red Cell Distribution Width 12.9 % (11.5-14.5); White Blood Count 12.8 K/mm3 (4.5-10.0)
[2024-08-06 18:55] LABS: INR 0.9; Lactic Acid Reflex 1.2 mmol/L (0.7-2.0); Partial Thromboplastin Time 23.8 Seconds (22.3-36.8); Prothrombin Time 12.6 Seconds (11.1-14.7)
[2024-08-06] MEDS: PANTOPRAZOLE SODIUM IV 40 MG VIAL 80 MG IV PUSH (18:55)
[2024-08-06] MEDS: SODIUM CHLORIDE 0.9% IV 1,000 ML 999 ML IV CONT (18:55)
[2024-08-06 18:56] LABS: Alanine Aminotransferase 20 U/L (6-35); Albumin Level 4.3 g/dL (3.5-5.1); Alkaline Phosphatase 82 U/L (38-126); Anion Gap 9 mmol/L (4-12); Aspartate Amino Transferase 23 U/L (14-36); Bilirubin,Total 0.6 mg/dL (0.2-1.3); Blood Urea Nitrogen 27 mg/dL (7-17); Calcium 9.2 mg/dL (8.4-10.2); Carbon Dioxide 26 mmol/L (22-30); Chloride 103 mmol/L (98-107); Estimated CRCL calculation 48 ml/min; Estimated Glomerular Filt Rate > 60; Glucose 116 mg/dL (65-110); Lipase 144 U/L (23-300); Potassium 3.7 mmol/L (3.4-5.0); Sodium 138 mmol/L (137-145)
[2024-08-06 21:12] VITALS: BP 162/92; PULSE 100; RESP 18; O2SAT 100
[2024-08-06] MEDS: ACETAMINOPHEN 500 MG TABLET 1000 MG PO (21:39)
--- NOTE | 2024-08-06 22:28 | P.HP_ITS ---
H&P: HPI History of Present Illness Date/Time: 08/06/24 22:50 Chief Complaint: Sudden onset of Abdominal pain and bloody stools Narrative: 78-year-old female with past medical history of essential hypertension, anxiety, depression and distant history of hysterectomy who presented to the ER with sudden onset of generalized abdominal pain followed shortly thereafter by bright red blood per rectum. Patient reported that around 23:00 last night she acutely developed severe abdominal pain with nausea, 2 episodes of vomiting, diaphoresis and passing a large formed bowel movement. She reports that her initial bowel movement was nonbloody. The next morning she again was still having some crampy abdominal pain and had 2 stools that were bright red blood per rectum. She reported that the initial symptoms made her extremely lightheaded that she did not pass out. She denies any recent travel, recent ill contacts or exposures to food contaminant. Her last colonoscopy was February 2013 in demonstrated grade 3 i nternal hemorrhoids and mild chronic colitis consistent with ischemic colitis according to pathology. She reports that she had not had any recurrence of her abdominal symptoms since that time. She is not on blood thinners. Review of Systems Review of Systems: 12 systems were reviewed with pertinent positives and negatives per HPI. Except as documented in the HPI, all other systems were reviewed and are negative. [facility] Past Medical History Medical History (Updated 08/07/24 @ 04:59 by Sadie Pierre DO) Anxiety Benign hypertension (~06/13/18) Ganglion cyst of finger of right hand Hypertension Left knee DJD Right knee DJD Shingles Vitamin B12 deficiency Surgical History Surgical History History of cataract extraction Hx of hysterectomy, total Hx of tonsillectomy Family History Family History Father Hypertension Family history of malignant neoplasm Grandparent Hypertension Mother Family history of malignant neoplasm of uterus Other Carcinoma of colon Family history of malignant neoplasm of breast in first degree relative Social History Social History (Updated 08/07/24 @ 05:01 by Sadie Pierre DO) Social History: She lives in [place] with her of 57 years. They raised 2 sons and 1 daughter. She worked as a corporation secretary but retired in 2006. She is a lifelong nonsmoker and does not drink alcohol or use illicit substances. She is independent activities of daily living. Code status: Full code Surrogate decision maker: Abiel Cramer () Smoking status: Never smoker Second hand tobacco smoke exposure: No Alcohol intake: never Alcohol use details: consumes 1 glass of wine rarely Substance use: never Substance use type: does not use Do You Feel Safe in your Home?: Yes Lack of Transportation: No Lack of Food: Never True Current Housing: I Have Housing Concerned About Future Housing: No Difficulty Paying Gas/Electric Bills: No Difficulty Paying for Meds: No Currently Unemployed: No Education: High School Diploma/GED Difficulty w/ Childcare or Family Care: No Living arrangements: with family Gender identity (if verbalized by the patient): Female Sexual Orientation (if Verbalized by the Patient): Straight or Heterosexual Spiritual care concerns: No Agree to blood products: Yes Meds Home Medications and Allergies Home Medications Medication Instructions Recorded Confirmed Type calcium carbonate (Calcium 500) 500 mg PO DAILY 04/13/23 08/07/24 History mecobalamin (vitamin B12) 1,000 1,000 mcg PO DAILY 04/13/23 08/07/24 History mcg chewable tablet sitrnbxq-eqmg-behb 8 mg-folic 400 1 tablet PO DAILY 04/23/23 08/07/24 History mcg-K 50 mcg-lutein 300 mcg tablet (Centrum Silver Women) lorazepam 0.5 mg tablet 0.5 mg PO Q8H PRN anxiety #90 ea 05/03/23 08/07/24 Rx amlodipine 2.5 mg tablet 2.5 mg PO DAILY #90 tabs 10/13/23 08/07/24 Rx lisinopril 40 mg tablet 40 mg PO DAILY #90 tabs 04/29/24 08/07/24 Rx Allergies Allergy/AdvReac Type Severity Reaction Status Date / Time diltiazem Allergy Unknown Rash Verified 08/07/24 00:07 Penicillins Allergy Unknown Tachycardia Verified 08/07/24 00:07 prednisone Allergy Unknown Rash Verified 08/07/24 00:07 Contrast Media Allergy Mild RASH Uncoded 08/07/24 00:07 Vital Signs Vital Signs - 24 hr 08/06/24 15:30 08/06/24 18:44 08/06/24 21:12 Temperature 97.6 F Pulse Rate 102 H 100 100 Respiratory Rate 16 18 18 Blood Pressure 152/101 H 154/89 H 162/92 H Pulse Oximetry 99 99 100 Exam Narrative: Weight 76 kg BMI 30.6 Const: Other: No acute distress, well-developed well-nourished, appears younger than stated age HENMT: Other: Mucous membranes are tacky, no oral pharyngeal erythema, head is normocephalic atraumatic, good dentition upper and lower jaw Eyes: Other: No conjunctival pallor, no scleral icterus, lens implants noted bilaterally Neck: Other: No thyromegaly, no JVD, supple Resp: Other: Clear to auscultation bilaterally, no increased work of breathing Cardio: Other: Regular rate, regular rhythm, 2+ bilateral radial pedal pulses GI: Other: Soft, nontender, nondistended, positive bowel sounds Skin: Other: No pallor, non jaundice Neuro: Other: Alert oriented x4, speech is clear, no facial asymmetry, no localizing neurologic deficits noted during the course of conversation Extrem: Other: No clubbing, cyanosis or edema Psych: Other: Appropriate mood and affect, pleasant and cooperative, judgment and insight intact H&P: Results Labs Labs: Laboratory Tests 08/06/24 23:44 08/06/24 18:41 08/06/24 08/06/24 18:41 23:44 WBC 12.8 H RBC 4.76 Hgb 14.5 14.6 Hct 43.4 42.3 MCV 91.2 MCH 30.5 MCHC 33.4 RDW 12.9 Plt Count 227 MPV 10.8 H Immature Gran % (Auto) 0.2 Neut % (Auto) 79.9 H Lymph % (Auto) 12.9 L [place] % (Auto) 6.6 Eos % (Auto) 0.2 Baso % (Auto) 0.2 Lymph # (Auto) 1.65 [place] # (Auto) 0.8 H Eos # (Auto) 0.0 Baso # (Auto) 0.0 Abs Immat Gran (auto) 0.03 Absolute Neuts (auto) 10.2 H Absolute Nucleated RBC 0.000 Nucleated RBC % 0.0 PT 12.6 INR 0.9 APTT 23.8 Sodium 138 Potassium 3.7 Chloride 103 Carbon Dioxide 26 Anion Gap 9 BUN 27 H Creatinine 0.80 Estim Creat Clear Calc 48 Estimated GFR > 60 Glucose 116 H Lactic Acid 1.2 Calcium 9.2 Total Bilirubin 0.6 AST 23 ALT 20 Alkaline Phosphatase 82 Total Protein 8.0 Albumin 4.3 Lipase 144 Impressions Abdomen/Pelvis CT 08/06/24 20:11 IMPRESSION: Prominent mural thickening of long segment of distal descending and proximal sigmoid colon, with pericolic fat infiltration, suspicious for colon cancer. Diverticulitis is less likely. 3 x 3.3 cm lower pole exophytic left renal nonspecific mass 2.5 x 3.3 cm anterolateral upper pole left renal heterogeneous solid mass lesion, suspicious for hypernephroma. Consider further evaluation with MRI. Pinpoint nonobstructing left renal calculi Minimal diverticulosis of the sigmoid colon Assessment and Plan Assessment and plan (1) Acute lower GI bleeding: Code(s): K92.2 - Gastrointestinal hemorrhage, unspecified Status: Acute (2) Abnormal CT of the abdomen: Code(s): R93.5 - Abnormal findings on diagnostic imaging of other abdominal regions, including retroperitoneum Status: Acute (3) Abnormal finding of kidney: Code(s): R39.9 - Unspecified symptoms and signs involving the genitourinary system Status: Acute (4) Primary hypertension: Code(s): I10 - Essential (primary) hypertension Status: Acute Plan Patient has bright red blood per rectum and CT scan findings concerning for possible malignancy. However differential does include colitis. Patient does have mild leukocytosis. Patient is not having fever or other signs of infection. She has no risk factors for antibiotic associated diarrhea that would lead to gross hematochezia. Patient been placed on clear liquid diet. Gastroenterology has been consulted. The patient last colonoscopy was 11 years ago. Will await further recommendations from Gastroenterology. Will repeat CBC with a.m. labs. Patient does have abnormal imaging of kidneys. 3 x 3.3 lower pole exophytic left renal nonspecific mass and 2.5 x 3.3 upper pole left renal heterogeneous s olid mass lesion services for hypernephroma. The patient's creatinine is normal when she denies any evidence of gross hematuria at home. Will obtain UA with reflex to evaluate for the possible hematuria or other cause of imaging findings. Patient may benefit from outpatient MRI evaluation to further delineate mass. Patient does have a history of essential hypertension and blood pressures are m ildly elevated. Will resume patient's home lisinopril and Norvasc. Will monitor closely in add additional medications as needed for optimize blood pressure control. The patient is case and care was discussed with the patient and her at bedside with the patient's permission. All questions were answered. Patient has been admitted as observation status. Quality VTE Prophylaxis VTE prophylaxis: mechanical ordered (SCDs) Hospitalist MIPS Advance Care Plan I have confirmed that the patient's Advanced Care Plan is present, code status is documented, or surrogate decision maker is listed in patient medical record.: Yes Medication Reconciliation I have utilized all available resources to obtain, update and review the patients current medications (includes all prescriptions, OTC, herbals, cannabis, and nutritional supplements).: Yes
[2024-08-06 23:22] VITALS: BP 157/68; PULSE 80; RESP 18; O2SAT 96
[2024-08-06 23:49] VITALS: BP 159/93; PULSE 88; RESP 16; TEMP 36.3; O2SAT 96
[2024-08-06 23:51] LABS: Hematocrit 42.3 % (37.0-47.0); Hemoglobin 14.6 g/dL (12.0-15.0)
--- NOTE | 2024-08-06 23:55 | ADMGEN ---
This patient, Veronica Cramer, was admitted to [facility] Surg Room 321-02. Patient/family oriented to hospital policies and general routines including ID bracelet, bed and alarms, visiting hours, pain management, procedures, bathroom and other care routines, personal items, smoking policy, room service/diet, and visiting hours. Information on how to activate the Rapid Response Team has been discussed. Patient/Family are encouraged to report perceived risks to care and to ask questions if they do not understand what they are told or what they should do.
[2024-08-06 23:56] VITALS: BMI 30.6
[2024-08-07] VITALS: PULSE 82
[2024-08-07 04:00] VITALS: PULSE 82
[2024-08-07 05:19] VITALS: BP 150/92; PULSE 94; RESP 16; TEMP 36.4; O2SAT 97
[2024-08-07] MEDS: metroNIDAZOLE 500 MG/ISO 100ML 500 MG/100 ML BAG 100 MG IVPB ×3 (05:25→20:07)
[2024-08-07 05:47] LABS: Add Urine Microscopic? NO; Appearance Urine Clear (Clear); Bacteria Urine None Seen /hpf; Bilirubin Urine Negative (Negative); Blood Urine Non-Hemolyzed Trace (Negative); Color Urine Yellow (Yellow); Glucose Urine UA Negative (Negative); Ketones Urine Negative (Negative); Leukocyte Esterase Ur Negative LEU/UL (Negative); Nitrate Urine Negative (Negative); Non Pathogenic Casts 0-2; Protein Urine Negative (Negative); Specific Grav Ur 1.011 (1.001-1.035); Squamous Epithelial Cell Urine None Seen /hpf (Few); WBC Urine 0-5 /hpf (0-3)
[2024-08-07 07:11] LABS: Basophils Absolute Auto 0.1 K/mm3 (0.0-0.1); Basophils Percent Auto 0.4 % (0.2-1.2); Eosinophils Percent Auto 0.2 % (0-4.4); Hematocrit 40.8 % (37.0-47.0); Hemoglobin 13.2 g/dL (12.0-15.0); Immature Granulocyte Absolute 0.05 K/mm3 (0.00-0.031); Immature Granulocyte Percent A 0.4 % (0-0.5); Lymphocytes Absolute Auto 1.18 K/mm3 (0.9-3.2); Lymphocytes Percent Auto 10.3 % (18.3-44.2); Mean Corpuscular HGB Conc 32.4 g/dl (32-36); Mean Corpuscular Hemoglobin 30.2 pg (26-34); Mean Corpuscular Volume 93.4 fl (80-100); Monocytes Absolute Auto 0.6 K/mm3 (0.1-0.6); Monocytes Percent Auto 5.3 % (2.6-8.5); Neutrophils Absolute Auto 9.5 K/mm3 (1.3-6.7); Neutrophils Percent Auto 83.4 % (45.5-73.1); Platelet Count Result 198 k/mm3 (150-375); Red Blood Count 4.37 M/mm3 (4.2-5.4); Red Cell Distribution Width 12.8 % (11.5-14.5); White Blood Count 11.4 K/mm3 (4.5-10.0)
[2024-08-07 07:26] LABS: Anion Gap 8 mmol/L (4-12); Blood Urea Nitrogen 18 mg/dL (7-17); Calcium 8.2 mg/dL (8.4-10.2); Carbon Dioxide 24 mmol/L (22-30); Chloride 108 mmol/L (98-107); Estimated CRCL calculation 64 ml/min; Estimated Glomerular Filt Rate > 60; Glucose 100 mg/dL (65-110); Potassium 3.5 mmol/L (3.4-5.0); Sodium 140 mmol/L (137-145)
[2024-08-07 08:03] VITALS: PULSE 81
--- NOTE | 2024-08-07 08:38 | PM.IMPN ---
Progress Note: A&P Assessment and Plan (1) Acute lower GI bleeding: Code(s): K92.2 - Gastrointestinal hemorrhage, unspecified Status: Acute Assessment and Plan: Patient has bright red blood per rectum and CT scan findings concerning for possible malignancy. However differential does include colitis. Patient does have mild leukocytosis. Patient is not having fever or other signs of infection. She has no risk factors for antibiotic associated diarrhea that would lead to gross hematochezia. Colonoscopy 02/03/2013 showed internal hemorrhoids and mild colitis in the sigmoid colon.: Biopsies were consistent with mild chronic gastritis as seen with ischemic colitis. - Denies overuse of NSAIDs and not on any anticoagulation - CT abdomen/pelvis: Prominent mural thickening of long segment of distal descending and proximal sigmoid colon, with pericolic fat infiltration, suspicious for colon cancer. Diverticulitis is less likely. 3 x 3.3 cm lower pole exophytic left renal nonspecific mass 2.5 x 3.3 cm anterolateral upper pole left renal heterogeneous solid mass lesion, suspicious for hypernephroma. Consider further evaluation with MRI. Pinpoint nonobstructing left renal calculi Minimal diverticulosis of the sigmoid colon - Diet: clear liquid - Antibiotics for possible colitis: Rocephin and Flagyl started on 08/07 - Monitor serum electrolytes, CBC, hemoglobin/hematocrit q.8 hours. If hemoglobin drops below 7 transfuse packed red blood cells - Monitor for bloody bowel movements,chest pain,SOB or dizziness/lightheadedness - DVT Px: SCDs, Avoid anti-coagulations - Pantoprazole 40 mg BID - Gastroenterology has been consulted. Colonoscopy scheduled for tomorrow (2) Abnormal CT of the abdomen: Code(s): R93.5 - Abnormal findings on diagnostic imaging of other abdominal regions, including retroperitoneum Status: Acute Assessment and Plan: CT abdomen/pelvis: Prominent mural thickening of long segment of distal descending and proximal sigmoid colon, with pericolic fat infiltration, suspicious for colon cancer. Diverticulitis is less likely. 3 x 3.3 cm lower pole exophytic left renal nonspecific mass 2.5 x 3.3 cm anterolateral upper pole left renal heterogeneous solid mass lesion, suspicious for hypernephroma. Consider further evaluation with MRI. Pinpoint nonobstructing left renal calculi Minimal diverticulosis of the sigmoid colon MRI ordered for evaluation to further delineate mass. (3) Abnormal finding of kidney: Code(s): R39.9 - Unspecified symptoms and signs involving the genitourinary system Status: Acute Assessment and Plan: See above, #[address] of the abdomen BUN/Cr WNL. UA had trace non hemolyzed blood and 3-5 RBC, otherwise unremarkable MRI ordered for evaluation to further delineate mass. (4) Primary hypertension: Code(s): I10 - Essential (primary) hypertension Status: Acute Assessment and Plan: Chronic, continue home medications. - Amlodipine 2.5 mg daily - Lisinopril 40 mg daily - Monitor Time Spent With Patient Time with patient: 25 - 35 minutes Subjective Date/time seen: 08/07/24 08:38 Interval history: 78-year-old female with past medical history of essential hypertension, anxiety/depression and distant history of hysterectomy who presented to the ER with sudden onset of generalized abdominal pain followed shortly thereafter by bright red blood per rectum. patient is pleasant lying comfortably in bed with her at bedside. She states that her abdominal pain has subsided. She continues to have slight bleeding with bowel movements but notes that is much improved since yesterday. She has no other complaints denied chest pain, shortness a bath, nausea/vomiting. She was evaluated by GI today plans to take her for colonoscopy tomorrow. Patient states that she is severely claustrophobic. Will order 1 time dose of Ativan for the MRI. Review of Systems Review of Systems: All systems reviewed & are unremarkable except as noted in HPI and below Exam Narrative: AF HR 94 RR 16 SpO2 97 BP 150/92 General: female in no acute respiratory distress who is nontoxic appearing, lying semi recumbent in bed. HEENT: Normocephalic. Atraumatic. Extraocular movement intact. Sclera clear and anicteric. No facial asymmetry. Chest: Lungs are clear to auscultation bilaterally. No wheezes or crackles. CV: Heart was regular rate and rhythm. S1-S2. No murmurs, gallops, or rubs. Abd: Abdomen was soft. Nontender. Nondistended. Positive bowel sounds. No organomegaly or masses. Ext: No clubbing, cyanosis, or edema. 2+ DP pulses bilaterally. Neuro: Patient is alert and oriented x4. Cranial nerves 2-12 are intact. Speech is clear. Objective Data Vital Signs Vital Signs: Vital Signs - 24 hr 08/06/24 15:30 08/06/24 18:44 08/06/24 21:12 Temperature 97.6 F Pulse Rate 102 H 100 100 Respiratory Rate 16 18 18 Blood Pressure 152/101 H 154/89 H 162/92 H Pulse Oximetry 99 99 100 Oxygen Delivery 08/06/24 23:22 08/06/24 23:52 08/06/24 23:49 Temperature 97.4 F L Pulse Rate 80 88 Respiratory Rate 18 16 Blood Pressure 157/68 H 159/93 H Pulse Oximetry 96 96 Oxygen Delivery Room Air 08/07/24 00:00 08/07/24 04:00 08/07/24 05:19 Temperature 97.6 F Pulse Rate 82 82 94 Respiratory Rate 16 Blood Pressure 150/92 H Pulse Oximetry 97 Oxygen Delivery Intake/Output Intake/Output: Intake & Output 08/05/24 08/06/24 08/06/24 08/07/24 00:59 00:59 23:59 23:59 Intake Total 400 Balance 400 Meds/Results Medications: Active Medications Generic Name Dose Route Start Last Admin Trade Name Freq PRN Reason Stop Dose Admin Amlodipine Besylate 2.5 mg 08/07/24 09:00 Amlodipine Besylate 2.5 Mg Tablet PO DAILY [facility] Calcium Carbonate 200 mg 08/07/24 09:00 Calcium Carbonate (Tums) 500 Mg (200 Mg Elemental) PO DAILY [facility] Ceftriaxone Sodium 1 gm in 50 mls @ 100 mls/hr 08/07/24 05:00 08/07/24 05:55 Rocephin 1 Gm/Ns 50 Ml IVPB Infused Q24H [facility] Infusion Metronidazole 500 mg in 100 mls @ 100 mls/hr 08/07/24 05:00 08/07/24 05:55 Flagyl 500 Mg/Iso Soln 100 Ml IVPB 100 mls/hr Q8H [facility] Infusion Lisinopril 40 mg 08/07/24 09:00 Lisinopril 20 Mg Tablet PO DAILY [facility] Lorazepam 0.5 mg 08/07/24 04:45 Lorazepam (*Crx) 0.5 Mg Tablet PO Q8H PRN anxiety Morphine Sulfate 2 mg 08/06/24 22:04 Morphine Sulfate (*Crx) 2 Mg/Ml Inj IV PUSH Q2H PRN Pain Rated 7-10 Radiology Results: ITS Impressions Abdomen/Pelvis CT 08/06/24 20:11 IMPRESSION: Prominent mural thickening of long segment of distal descending and proximal sigmoid colon, with pericolic fat infiltration, suspicious for colon cancer. Diverticulitis is less likely. 3 x 3.3 cm lower pole exophytic left renal nonspecific mass 2.5 x 3.3 cm anterolateral upper pole left renal heterogeneous solid mass lesion, suspicious for hypernephroma. Consider further evaluation with MRI. Pinpoint nonobstructing left renal calculi Minimal diverticulosis of the sigmoid colon Labs Labs: Laboratory Results - last 24 hr 08/06/24 08/06/24 08/07/24 18:41 23:44 05:29 WBC 12.8 H RBC 4.76 Hgb 14.5 14.6 Hct 43.4 42.3 MCV 91.2 MCH 30.5 MCHC 33.4 RDW 12.9 Plt Count 227 MPV 10.8 H Immature Gran % (Auto) 0.2 Neut % (Auto) 79.9 H Lymph % (Auto) 12.9 L [place] % (Auto) 6.6 Eos % (Auto) 0.2 Baso % (Auto) 0.2 Lymph # (Auto) 1.65 [place] # (Auto) 0.8 H Eos # (Auto) 0.0 Baso # (Auto) 0.0 Abs Immat Gran (auto) 0.03 Absolute Neuts (auto) 10.2 H Absolute Nucleated RBC 0.000 Nucleated RBC % 0.0 PT 12.6 INR 0.9 APTT 23.8 Sodium 138 Potassium 3.7 Chloride 103 Carbon Dioxide 26 Anion Gap 9 BUN 27 H Creatinine 0.80 Estim Creat Clear Calc 48 Estimated GFR > 60 Glucose 116 H Lactic Acid 1.2 Calcium 9.2 Total Bilirubin 0.6 AST 23 ALT 20 Alkaline Phosphatase 82 Total Protein 8.0 Albumin 4.3 Lipase 144 Urine Color Yellow Urine Appearance Clear Urine pH 7.0 Ur Specific [place] 1.011 Urine Protein Negative Urine Glucose (UA) Negative Urine Ketones Negative Ur Blood (Man) Non-hemolyzed trace H Urine Nitrate Negative Urine Bilirubin Negative Urine Urobilinogen 1.0 Leukocyte Esterase Rfl Negative Urine RBC 3-5 H Urine WBC 0-5 Ur Squamous Epith Cells None seen Urine Bacteria None seen Urine Casts 0-2 08/07/24 06:48 WBC 11.4 H RBC 4.37 Hgb 13.2 Hct 40.8 MCV 93.4 MCH 30.2 MCHC 32.4 RDW 12.8 Plt Count 198 MPV 11.0 H Immature Gran % (Auto) 0.4 Neut % (Auto) 83.4 H Lymph % (Auto) 10.3 L [place] % (Auto) 5.3 Eos % (Auto) 0.2 Baso % (Auto) 0.4 Lymph # (Auto) 1.18 [place] # (Auto) 0.6 Eos # (Auto) 0.0 Baso # (Auto) 0.1 Abs Immat Gran (auto) 0.05 H Absolute Neuts (auto) 9.5 H Absolute Nucleated RBC 0.000 Nucleated RBC % 0.0 PT INR APTT Sodium 140 Potassium 3.5 Chloride 108 H Carbon Dioxide 24 Anion Gap 8 BUN 18 H Creatinine 0.60 L Estim Creat Clear Calc 64 Estimated GFR > 60 Glucose 100 Lactic Acid Calcium 8.2 L Total Bilirubin AST ALT Alkaline Phosphatase Total Protein Albumin Lipase Urine Color Urine Appearance Urine pH Ur Specific [place] Urine Protein Urine Glucose (UA) Urine Ketones Ur Blood (Man) Urine Nitrate Urine Bilirubin Urine Urobilinogen Leukocyte Esterase Rfl Urine RBC Urine WBC Ur Squamous Epith Cells Urine Bacteria Urine Casts Quality VTE Prophylaxis VTE prophylaxis: mechanical ordered
[2024-08-07] MEDS: lisinopriL 20 MG TABLET 40 MG PO (09:47)
[2024-08-07] MEDS: PANTOPRAZOLE 40 MG TABLET PO ×2 (09:47→20:07)
[2024-08-07] MEDS: amLODIPine BESYLATE 2.5 MG TABLET PO (09:47)
[2024-08-07] MEDS: CALCIUM CARBONATE (TUMS) 500 MG (200 MG ELEMENTAL) PO (09:47)
[2024-08-07 10:04] LABS: Hematocrit 43.2 % (37.0-47.0); Hemoglobin 14.4 g/dL (12.0-15.0)
--- NOTE | 2024-08-07 10:35 | P.CONGI_ITS ---
I, Ramos Tobin MD, have provided a substantive portion of the care of this patient and discussed the patient with my Nurse Practitioner. I have reviewed any new relevant radiographic and laboratory results including medications. I agree with her documentation as noted below.?I personally performed the medical decision making and much of the history and exam for this encounter. here with new onset of lower abdominal pain and rectal bleeding, denies weight loss. Last colonoscopy 2012 with mild sigmoid colitis possible ischemic. CT scan can not rule out maligancy left colon, also could be colitis. She is comfortable right now. Plan is colonoscopy tomorrow to assess if malignancy. Assessment and Plan Assessment and plan (1) Acute lower GI bleeding: Code(s): K92.2 - Gastrointestinal hemorrhage, unspecified Status: Acute (2) Abnormal CT of the abdomen: Code(s): R93.5 - Abnormal findings on diagnostic imaging of other abdominal regions, including retroperitoneum Status: Acute (3) Hemorrhoids: Qualifiers: Hemorrhoid type: unspecified Qualified Code(s): K64.9 - Unspecified hemorrhoids Code(s): K64.9 - Unspecified hemorrhoids Status: Acute (4) Abdominal pain: Qualifiers: Abdominal location: periumbilical Qualified Code(s): R10.33 - Periumbilical pain Code(s): R10.9 - Unspecified abdominal pain Status: Acute Plan 1. Hematochezia / abdominal pain/ Hemorrhoid/abnormal imaging digestive: Colonoscopy 02/03/2013 showed internal hemorrhoids and mild colitis in the sigmoid colon.: Biopsies were consistent with mild chronic gastritis as seen with ischemic colitis. CT abdomen/pelvis on 08/06/2024 showed mural thickening of the distal descending and proximal sigmoid colon suspicious for colon cancer. labs today show WBC is 11.4, HGB 13, HCT 41, MCV 93, platelets 198, INR 0.9. Patient states that on Wednesday she started having severe mid / umbilical abdominal pain that was sharp in nature and did not have a correlation with food intake or bowel movements. She states that this pain has since resolved. On Wednesday she started having bright red blood per rectum. Patient states that she had a total of 2 episodes of painless rectal bleeding. Today she states that her bowel movements are more formed and more normal in color but she can still see a little blood . Prior to this weekend she was having daily bowel movements that were formed and not urgent. She denies any symptomatic hemorrhoids. She is not on any NSAIDs, aspirin, or anticoagulants. Family history includes maternal aunt with colon cancer. * MRI pending * Continue clear liquid diet * Plan for colonoscopy tomorrow * Bowel prep to start this evening * NPO after midnight * Continue supportive care * continue to monitor H&H and transfuse as needed to keep HGB > 7 * further recommendations to follow endoscopy Thank you very much for allowing me to share in the care of this very nice patient. This report may have been done utilizing a voice recognition system. Attempts have been made to correct errors. However, there may be uncorrected grammatical, spelling, and recognition errors present. GI Consult Note Consult date/time: 08/07/24 10:35 Reason for consult: Lower GI bleed HPI: This is a pleasant 78 year old female with a past medical surgical history of anxiety, hypertension, vitamin B12 deficiency and hysterectomy she presented to the ER room 08/06/2024 with complaints of GI bleeding. GI consulted for lower GI bleed. Patient was accompanied by her Ed throughout the entire visit. She reports that on Wednesday night she had severe abdominal pain that was located in the mid abdomen/umbilicus and was sweating with the pain. On Wednesday morning she had a bowel movement and noticed that the stool was red in color. The next bowel movement was bright red blood. Today she reports that the stool was more formed and not bright red blood but she could still tell there was blood present. She denies any pain in the rectum. She reports the abdominal pain has resolved. She was given Tylenol in the hospital last night which helped with the pain. She denies any nausea or vomiting. She denies any dysphagia or odynophagia. She denies any heartburn symptoms. Her appetite is good. Denies any unintentional weight loss. She reports that she typically has a bowel movement once a day and they are usually formed. She denies any urgency or fecal in continence. She reports a history of colitis in 2012 that was diagnosed on colonoscopy. She denies any regular use of NSAIDs. Denies any NSAID, aspirin or blood thinner use. Hx of hysterectomy but no other abdominal surgeries. She denies any history of smoking or alcohol use. Family history is significant for an aunt on her mother's side with colon cancer. ENDOSCOPY HISTORY: EGD: Patient has never had an EGD COLONOSCOPY: 02/03/[address] Gleason for rectal bleeding and abdominal pain Findings: In the rectum, multiple large-size uncomplicated internal hemorrhoids were seen. The internal hemorrhoids were not bleeding. The hemorrhoids were Grade III (Ble eding with Prolapse and Manual Reduction) From proximal sigmoid colon to distal sigmoid colon, mild localized inflammation with erythema, edema, hypervascularity was seen. There was no mucosal bleeding Bx results: Sigmoid colon, endoscopic biopsy: Mild chronic colitis consistent with ischemic colitis LABS AND STOOL STUDIES: Labs 08/07/2024 Sodium 140, potassium 3.5, BUN 18, creatinine 0.60, GFR > 60, WBC 11.4, HGB 13, HCT 41, MCV 93, platelets 198, INR 0.9, total bilirubin 0.6, AST 23, ALT 20, alkaline phosphatase 82, albumin 4.3, calcium 8.2 IMAGING: CT abd/pelvis w/contrast 08/06/2024 IMPRESSION: Prominent mural thickening of long segment of distal descending and proximal sigmoid colon, with pericolic fat infiltration, suspicious for colon cancer. Diverticulitis is less likely. 3 x 3.3 cm lower pole exophytic left renal nonspecific mass 2.5 x 3.3 cm anterolateral upper pole left renal heterogeneous solid mass lesion, suspicious for hypernephroma. Review of Systems Constitutional: Constitutional: Reports as per HPI ENT: Reports as per HPI Cardiovascular: Cardiovascular: Reports as per HPI, Denies chest pain and Den ies dyspnea Respiratory: Respiratory: Denies cough and Denies dyspnea Gastrointestinal: Gastrointestinal: Reports as per HPI Musculoskeletal: Musculoskeletal: Reports as per HPI Integumentary/Breasts: Skin/Breast: Reports as per HPI Psychiatric: Psychiatric: Reports as per HPI Endocrine: Endocrine: Reports no additional endocrine complaints Hematologic/Lymphatic: Hematologic/Lymphatic: Reports no additional hematologic/lymphatic complaints [facility] Past Medical History Medical History (Updated 08/07/24 @ 10:44 by Bronwyn Black APRN) Anxiety Benign hypertension (~06/13/18) Ganglion cyst of finger of right hand Hypertension Left knee DJD Right knee DJD Shingles Vitamin B12 deficiency Surgical History Surgical History History of cataract extraction Hx of hysterectomy, total Hx of tonsillectomy Family History Family History Father Hypertension Family history of malignant neoplasm Grandparent Hypertension Mother Family history of malignant neoplasm of uterus Other Carcinoma of colon Family history of malignant neoplasm of breast in first degree relative Social History Social History (Updated 08/07/24 @ 05:01 by Sadie Pierre DO) Social History: She lives in [place] with her of 57 years. They raised 2 sons and 1 daughter. She worked as a transcripter but retired in 2006. She is a lifelong nonsmoker and does not drink alcohol or use illicit substances. She is independent activities of daily living. Code status: Full code Surrogate decision maker: Abiel Cramer () Smoking status: Never smoker Second hand tobacco smoke exposure: No Alcohol intake: never Alcohol use details: consumes 1 glass of wine rarely Substance use: never Substance use type: does not use Do You Feel Safe in your Home?: Yes Lack of Transportation: No Lack of Food: Never True Current Housing: I Have Housing Concerned About Future Housing: No Difficulty Paying Gas/Electric Bills: No Difficulty Paying for Meds: No Currently Unemployed: No Education: High School Diploma/GED Difficulty w/ Childcare or Family Care: No Living arrangements: with family Gender identity (if verbalized by the patient): Female Sexual Orientation (if Verbalized by the Patient): Straight or Heterosexual Spiritual care concerns: No Agree to blood products: Yes Meds Home Medications and Allergies Home Medications Medication Instructions Recorded Confirmed Type calcium carbonate (Calcium 500) 500 mg PO DAILY 04/13/23 08/07/24 History mecobalamin (vitamin B12) 1,000 1,000 mcg PO DAILY 04/13/23 08/07/24 History mcg chewable tablet [id number] 8 mg-folic 400 1 tablet PO DAILY 04/23/23 08/07/24 History mcg-K 50 mcg-lutein 300 mcg tablet (Centrum Silver Women) lorazepam 0.5 mg tablet 0.5 mg PO Q8H PRN anxiety #90 ea 05/03/23 08/07/24 Rx amlodipine 2.5 mg tablet 2.5 mg PO DAILY #90 tabs 10/13/23 08/07/24 Rx lisinopril 40 mg tablet 40 mg PO DAILY #90 tabs 04/29/24 08/07/24 Rx Allergies Allergy/AdvReac Type Severity Reaction Status Date / Time diltiazem Allergy Unknown Rash Verified 08/07/24 00:07 Penicillins Allergy Unknown Tachycardia Verified 08/07/24 00:07 prednisone Allergy Unknown Rash Verified 08/07/24 00:07 Contrast Media Allergy Mild RASH Uncoded 08/07/24 00:07 Vital Signs Vital Signs - 24 hr 08/06/24 15:30 08/06/24 18:44 08/06/24 21:12 Temperature 97.6 F Pulse Rate 102 H 100 100 Respiratory Rate 16 18 18 Blood Pressure 152/101 H 154/89 H 162/92 H Pulse Oximetry 99 99 100 Oxygen Delivery 08/06/24 23:22 08/06/24 23:52 08/06/24 23:49 Temperature 97.4 F L Pulse Rate 80 88 Respiratory Rate 18 16 Blood Pressure 157/68 H 159/93 H Pulse Oximetry 96 96 Oxygen Delivery Room Air 08/07/24 00:00 08/07/24 04:00 08/07/24 05:19 Temperature 97.6 F Pulse Rate 82 82 94 Respiratory Rate 16 Blood Pressure 150/92 H Pulse Oximetry 97 Oxygen Delivery Exam Const: General: cooperative, healthy appearing, comfortable, no acute distress and well developed Orientation/consciousness: oriented to person, oriented to place, oriented to time and patient oriented x3 HENMT: Head: normal to inspection, normocephalic and atraumatic Mouth: Yes Normal oral and palatal mucosa present and Yes moist mucous membranes Eyes: General: appearance normal, both eyes and all related structures Conjunctivae: conjunctivae normal Sclera: sclerae normal Pupils: Equal, round and reactive pupils present Neck: Neck: normal visual inspection Chest: Chest palpation & inspection: normal inspection of the chest Resp: Effort & Inspection: normal respiratory effort and able to speak in complete sentences Auscultation: clear to auscultation bilaterally Cardio: Jugular venous distension: no JVD Rate: regular rate Rhythm: regular rhythm Heart sounds: S1 normal heart sound present and S2 normal heart sound present GI: Inspection: normal to inspection GI Palp: Yes Soft to palpation and Yes No hepatosplenomegaly present Auscultation: normal bowel sounds Rectal Exam: deferred Skin: General skin exam: normal color and no rashes or lesions noted Neuro: General: oriented to person, oriented to place, oriented to time and patient oriented x3 Cranial nerves: Yes Equal, round and reactive pupils present Speech: normal speech Extrem: General: normal to inspection and no clubbing, cyanosis or edema Psych: Appearance: grossly normal and well kempt Affect: normal affect Results Labs 08/07/24 09:56 08/07/24 06:48 Labs: Short CBC 08/06/24 08/06/24 08/07/24 Range/Units 18:41 23:44 06:48 WBC 12.8 H 11.4 H (4.5-10.0) K/mm3 Hgb 14.5 14.6 13.2 (12.0-15.0) g/dL Hct 43.4 42.3 40.8 (37.0-47.0) % Plt Count 227 198 (150-375) k/mm3 08/07/24 Range/Units 09:56 WBC (4.5-10.0) K/mm3 Hgb 14.4 (12.0-15.0) g/dL Hct 43.2 (37.0-47.0) % Plt Count (150-375) k/mm3 [facility] 08/06/24 08/07/24 18:41 06:48 Sodium 138 140 Potassium 3.7 3.5 Chloride 103 108 H Carbon Dioxide 26 24 BUN 27 H 18 H Creatinine 0.80 0.60 L Glucose 116 H 100 Calcium 9.2 8.2 L Liver Function 08/06/24 Range/Units 18:41 Total Bilirubin 0.6 (0.2-1.3) mg/dL AST 23 (14-36) U/L ALT 20 (6-35) U/L Alkaline Phosphatase 82 (38-126) U/L Albumin 4.3 (3.5-5.1) g/dL Urine 08/07/24 Range/Units 05:29 Urine Color Yellow (Yellow) Urine Appearance Clear (Clear) Urine pH 7.0 (5.0-9.0) Ur Specific [place] 1.011 (1.001-1.035) Urine Protein Negative (Negative) mg/dL Urine Glucose (UA) Negative (Negative) mg/dL
--- NOTE | 2024-08-07 13:24 | PC.NURSE ---
Pt off the floor to get MRI
[2024-08-07 14:00] VITALS: BP 146/74; PULSE 100; RESP 18; TEMP 35.9; O2SAT 98
[2024-08-07 16:13] LABS: Hemoglobin 14.4 g/dL (12.0-15.0)
[2024-08-07] MEDS: polyethylene glycoL 3350 238 GM BOTTLE PO (17:38)
[2024-08-07] MEDS: BISACODYL 5 MG TABLET EC 20 MG PO (17:38)
[2024-08-07 22:00] VITALS: BP 134/73; PULSE 88; RESP 14; TEMP 36.3; O2SAT 97
[2024-08-08] VITALS (7 sets, daily range): BP systolic 112–149; BP diastolic 54–83; PULSE 66–91; RESP 12–18; TEMP 36–37.2; O2SAT 97–100
[2024-08-08] MEDS: MAGNESIUM CITRATE 300 ML BTL PO (02:36)
[2024-08-08] MEDS: metroNIDAZOLE 500 MG/ISO 100ML 500 MG/100 ML BAG 100 MG IVPB (05:47)
[2024-08-08 06:26] LABS: Basophils Absolute Auto 0.1 K/mm3 (0.0-0.1); Basophils Percent Auto 0.6 % (0.2-1.2); Eosinophils Absolute Auto 0.1 K/mm3 (0-0.3); Eosinophils Percent Auto 0.6 % (0-4.4); Hematocrit 41.5 % (37.0-47.0); Hemoglobin 13.5 g/dL (12.0-15.0); Immature Granulocyte Absolute 0.08 K/mm3 (0.00-0.031); Immature Granulocyte Percent A 0.6 % (0-0.5); Lymphocytes Absolute Auto 1.61 K/mm3 (0.9-3.2); Lymphocytes Percent Auto 11.2 % (18.3-44.2); Mean Corpuscular HGB Conc 32.5 g/dl (32-36); Mean Corpuscular Hemoglobin 30.8 pg (26-34); Mean Corpuscular Volume 94.7 fl (80-100); Mean Platelet Volume 10.9 fl (7.4-10.4); Monocytes Absolute Auto 0.8 K/mm3 (0.1-0.6); Monocytes Percent Auto 5.7 % (2.6-8.5); Neutrophils Absolute Auto 11.8 K/mm3 (1.3-6.7); Neutrophils Percent Auto 81.3 % (45.5-73.1); Platelet Count Result 196 k/mm3 (150-375); Red Blood Count 4.38 M/mm3 (4.2-5.4); Red Cell Distribution Width 13.1 % (11.5-14.5); White Blood Count 14.4 K/mm3 (4.5-10.0)
[2024-08-08 06:33] LABS: Potassium 3.6 mmol/L (3.4-5.0)
[2024-08-08 06:51] LABS: Alanine Aminotransferase 19 U/L (6-35); Albumin Level 3.9 g/dL (3.5-5.1); Alkaline Phosphatase 72 U/L (38-126); Anion Gap 9 mmol/L (4-12); Aspartate Amino Transferase 22 U/L (14-36); Bilirubin,Total 0.8 mg/dL (0.2-1.3); Blood Urea Nitrogen 10 mg/dL (7-17); Calcium 8.8 mg/dL (8.4-10.2); Carbon Dioxide 24 mmol/L (22-30); Chloride 109 mmol/L (98-107); Estimated CRCL calculation 55 ml/min; Estimated Glomerular Filt Rate > 60; Glucose 110 mg/dL (65-110); Sodium 142 mmol/L (137-145)
--- NOTE | 2024-08-08 09:13 | P.PNIM_ITS ---
Progress Note: A&P Assessment and Plan (1) Acute lower GI bleeding: Code(s): K92.2 - Gastrointestinal hemorrhage, unspecified Status: Acute Assessment and Plan: Patient has bright red blood per rectum and CT scan findings concerning for possible malignancy. However differential does include colitis. Patient does have mild leukocytosis. Patient is not having fever or other signs of infection. She has no risk factors for antibiotic associated diarrhea that would lead to gross hematochezia. Colonoscopy 02/03/2013 showed internal hemorrhoids and mild colitis in the sigmoid colon.: Biopsies were consistent with mild chronic gastritis as seen with ischemic colitis. - Denies overuse of NSAIDs and not on any anticoagulation - CT abdomen/pelvis: Prominent mural thickening of long segment of distal descending and proximal sigmoid colon, with pericolic fat infiltration, suspicious for colon cancer. Diverticulitis is less likely. 3 x 3.3 cm lower pole exophytic left renal nonspecific mass 2.5 x 3.3 cm anterolateral upper pole left renal heterogeneous solid mass lesion, suspicious for hypernephroma. Consider further evaluation with MRI. Pinpoint nonobstructing left renal calculi Minimal diverticulosis of the sigmoid colon - Diet: Full liquid - Antibiotics for possible colitis: Rocephin and Flagyl started on 08/07. Rocephin dose increased to 2 g daily given her increase in WBC. - Monitor serum electrolytes, CBC, hemoglobin/hematocrit q.8 hours. If hemoglobin drops below 7 transfuse packed red blood cells - Monitor for bloody bowel movements,chest pain,SOB or dizziness/lightheadedness - DVT Px: SCDs, Avoid anti-coagulations - Gastroenterology has been consulted. Colonoscopy: Sigmoiditis, colonic polyps (biopsied), adn internal hemorrhoids The management of this condition is purely supportive. If her condition is stable and there is no further bleeding she can be discharged in 48 hours. (2) Abnormal CT of the abdomen: Code(s): R93.5 - Abnormal findings on diagnostic imaging of other abdominal regions, including retroperitoneum Status: Acute Assessment and Plan: CT abdomen/pelvis: Prominent mural thickening of long segment of distal descending and proximal sigmoid colon, with pericolic fat infiltration, suspicious for colon cancer. Diverticulitis is less likely. 3 x 3.3 cm lower pole exophytic left renal nonspecific mass 2.5 x 3.3 cm anterolateral upper pole left renal heterogeneous solid mass lesion, suspicious for hypernephroma. Consider further evaluation with MRI. Pinpoint nonobstructing left renal calculi Minimal diverticulosis of the sigmoid colon MRI ordered for evaluation to further delineate mass Benign cysts in the kidneys. Wall thickening of the sigmoid colon and distal descending colon, consistent with colitis versus malignancy. Small volume of pelvic ascites. (3) Abnormal finding of kidney: Code(s): R39.9 - Unspecified symptoms and signs involving the genitourinary system Status: Acute Assessment and Plan: See above, #[address] of the abdomen BUN/Cr WNL. UA had trace non hemolyzed blood and 3-5 RBC, otherwise unremarkable MRI ordered for evaluation to further delineate mass. Benign cysts in the kidneys. (4) Primary hypertension: Code(s): I10 - Essential (primary) hypertension Status: Acute Assessment and Plan: Chronic, continue home medications. - Amlodipine 2.5 mg daily - Lisinopril 40 mg daily - Monitor Time Spent With Patient Time with patient: 25 - 35 minutes Subjective Date/time seen: 08/08/24 09:13 Interval history: 78-year-old female with past medical history of essential hypertension, anxiety/depression and distant history of hysterectomy who presented to the ER with sudden onset of generalized abdominal pain followed shortly thereafter by bright red blood per rectum. Patient is pleasant lying comfortably in bed with her at bedside. She states that the bleeding per rectum has completely subsided since finishing the bowel prep. She denies nausea/vomiting and abdominal pain. She underwent a colonoscopy today which showed sigmoiditis, polyps and hemorrhoids. She remains on antibiotics, dose increased given worsening WBC. Per GI if her condition is stable and there is no further bleeding she can be discharged in 48 hours. Review of Systems Review of Systems: All systems reviewed & are unremarkable except as noted in HPI and below Exam Narrative: AF HR 91 RR 18 Spo2 98 BP 149/83 General: female in no acute respiratory distress who is nontoxic appearing, lying semi recumbent in bed. HEENT: Normocephalic. Atraumatic. Extraocular movement intact. Sclera clear and anicteric. No facial asymmetry. Chest: Lungs are clear to auscultation bilaterally. No wheezes or crackles. CV: Heart was regular rate and rhythm. S1-S2. No murmurs, gallops, or rubs. Abd: Abdomen was soft. Nontender. Nondistended. Positive bowel sounds. No organomegaly or masses. Ext: No clubbing, cyanosis, or edema. 2+ DP pulses bilaterally. Neuro: Patient is alert and oriented x4. Cranial nerves 2-12 are intact. Speech is clear. Objective Data Vital Signs Vital Signs: Vital Signs - 24 hr 08/07/24 14:00 08/07/24 22:00 08/08/24 05:40 Temperature 96.7 F L 97.3 F L 98.3 F Pulse Rate 100 88 85 Respiratory Rate 18 14 12 Blood Pressure 146/74 H 134/73 114/54 L Pulse Oximetry 98 97 98 Intake/Output Intake/Output: Intake & Output 08/06/24 08/06/24 08/07/24 08/08/24 00:59 23:59 23:59 23:59 Intake Total 1420 575 Output Total 1000 1 Balance 420 574 Meds/Results Medications: Active Medications Generic Name Dose Route Start Last Admin Trade Name Freq PRN Reason Stop Dose Admin Amlodipine Besylate 2.5 mg 08/07/24 09:00 08/07/24 09:47 Amlodipine Besylate 2.5 Mg Tablet PO 2.5 mg DAILY VALENICA Administration Calcium Carbonate 200 mg 08/07/24 09:00 08/07/24 09:47 Calcium Carbonate (Tums) 500 Mg (200 Mg Elemental) PO 200 mg DAILY VALENCIA Administration Ceftriaxone Sodium 1 gm in 50 mls @ 100 mls/hr 08/07/24 05:00 08/08/24 05:10 Rocephin 1 Gm/Ns 50 Ml IVPB 100 mls/hr Q24H VALENCIA Administration Metronidazole 500 mg in 100 mls @ 100 mls/hr 08/07/24 05:00 08/08/24 05:47 Flagyl 500 Mg/Iso Soln 100 Ml IVPB 100 mls/hr Q8H VALENCIA Administration Lisinopril 40 mg 08/07/24 09:00 08/07/24 09:47 Lisinopril 20 Mg Tablet PO 40 mg DAILY VALENCIA Administration Lorazepam 0.5 mg 08/07/24 04:45 Lorazepam (*Crx) 0.5 Mg Tablet PO Q8H PRN anxiety Morphine Sulfate 2 mg 08/06/24 22:04 Morphine Sulfate (*Crx) 2 Mg/Ml Inj IV PUSH Q2H PRN Pain Rated 7-10 Pantoprazole Sodium 40 mg 08/07/24 09:00 08/07/24 20:07 Pantoprazole 40 Mg Tablet PO 40 mg Q12HR VALENCIA Administration Radiology Results: ITS Impressions Abdomen/Pelvis CT 08/06/24 20:11 IMPRESSION: Prominent mural thickening of long segment of distal descending and proximal sigmoid colon, with pericolic fat infiltration, suspicious for colon cancer. Diverticulitis is less likely. 3 x 3.3 cm lower pole exophytic left renal nonspecific mass 2.5 x 3.3 cm anterolateral upper pole left renal heterogeneous solid mass lesi on, suspicious for hypernephroma. Consider further evaluation with MRI. Pinpoint nonobstructing left renal calculi Minimal diverticulosis of the sigmoid colon Abdomen MRI 08/07/24 14:19 IMPRESSION: 1. Benign cysts in the kidneys. 2. Wall thickening of the sigmoid colon and distal descending colon, consistent with colitis versus malignancy. 3. Small volume of pelvic ascites. Labs Labs: Laboratory Results - last 24 hr 08/07/24 08/07/24 08/08/24 09:56 16:08 06:16 WBC 14.4 H RBC 4.38 Hgb 14.4 14.4 13.5 Hct 43.2 43.0 41.5 MCV 94.7 MCH 30.8 MCHC 32.5 RDW 13.1 Plt Count 196 MPV 10.9 H Immature Gran % (Auto) 0.6 H Neut % (Auto) 81.3 H Lymph % (Auto) 11.2 L [place] % (Auto) 5.7 Eos % (Auto) 0.6 Baso % (Auto) 0.6 Lymph # (Auto) 1.61 [place] # (Auto) 0.8 H Eos # (Auto) 0.1 Baso # (Auto) 0.1 Abs Immat Gran (auto) 0.08 H Absolute Neuts (auto) 11.8 H Absolute Nucleated RBC 0.000 Nucleated RBC % 0.0 Sodium 142 Potassium 3.6 Chloride 109 H Carbon Dioxide 24 Anion Gap 9 BUN 10 D Creatinine 0.70 Estim Creat Clear Calc 55 Estimated GFR > 60 Glucose 110 Calcium 8.8 Total Bilirubin 0.8 AST 22 ALT 19 Alkaline Phosphatase 72 Total Protein 7.0 Albumin 3.9 Quality VTE Prophylaxis VTE prophylaxis: mechanical ordered
--- NOTE | 2024-08-08 12:37 | P.HP_ITS ---
H&P: HPI History of Present Illness Date/Time: 08/08/24 12:37 Chief Complaint: Rectal bleeding Narrative: this patient was admitted yesterday with a history of intermittent rectal bleeding and CT scan showing thickening of the sigmoid colon, suspicious for colon cancer. Of note, patient had a colonoscopy in 2012 with a possible diagnosis of ischemic colitis. She is here for Review of Systems Review of Systems: All systems reviewed & are unremarkable except as noted in HPI and below PMFSH Past Medical History Medical History (Updated 08/07/24 @ 10:44 by Bronwyn Black APRN) Anxiety Benign hypertension (~06/13/18) Ganglion cyst of finger of right hand Hypertension Left knee DJD Right knee DJD Shingles Vitamin B12 deficiency Surgical History Surgical History History of cataract extraction Hx of hysterectomy, total Hx of tonsillectomy Family History Family History Father Hypertension Family history of malignant neoplasm Grandparent Hypertension Mother Family history of malignant neoplasm of uterus Other Carcinoma of colon Family history of malignant neoplasm of breast in first degree relative Social History Social History (Updated 08/07/24 @ 05:01 by Sadie Pierre DO) Social History: She lives in [place] with her of 57 years. They raised 2 sons and 1 daughter. She worked as a marketing secretary but retired in 2006. She is a lifelong nonsmoker and does not drink alcohol or use illicit substances. She is independent activities of daily living. Code status: Full code Surrogate decision maker: Abiel Cramer () Smoking status: Never smoker Second hand tobacco smoke exposure: No Alcohol intake: never Alcohol use details: consumes 1 glass of wine rarely Substance use: never Substance use type: does not use Do You Feel Safe in your Home?: Yes Lack of Transportation: No Lack of Food: Never True Current Housing: I Have Housing Concerned About Future Housing: No Difficulty Paying Gas/Electric Bills: No Difficulty Paying for Meds: No Currently Unemployed: No Education: High School Diploma/GED Difficulty w/ Childcare or Family Care: No Living arrangements: with family Gender identity (if verbalized by the patient): Female Sexual Orientation (if Verbalized by the Patient): Straight or Heterosexual Spiritual care concerns: No Agree to blood products: Yes Meds Home Medications and Allergies Home Medications Medication Instructions Recorded Confirmed Type calcium carbonate (Calcium 500) 500 mg PO DAILY 04/13/23 08/07/24 History mecobalamin (vitamin B12) 1,000 1,000 mcg PO DAILY 04/13/23 08/07/24 History mcg chewable tablet [id number] 8 mg-folic 400 1 tablet PO DAILY 04/23/23 08/07/24 History mcg-K 50 mcg-lutein 300 mcg tablet (Centrum Silver Women) lorazepam 0.5 mg tablet 0.5 mg PO Q8H PRN anxiety #90 ea 05/03/23 08/07/24 Rx amlodipine 2.5 mg tablet 2.5 mg PO DAILY #90 tabs 10/13/23 08/07/24 Rx lisinopril 40 mg tablet 40 mg PO DAILY #90 tabs 04/29/24 08/07/24 Rx Allergies Allergy/AdvReac Type Severity Reaction Status Date / Time diltiazem Allergy Unknown Rash Verified 08/07/24 00:07 Penicillins Allergy Unknown Tachycardia Verified 08/07/24 00:07 prednisone Allergy Unknown Rash Verified 08/07/24 00:07 Contrast Media Allergy Mild RASH Uncoded 08/07/24 00:07 Vital Signs Vital Signs - 24 hr 08/07/24 14:00 08/07/24 22:00 08/08/24 05:40 Temperature 96.7 F L 97.3 F L 98.3 F Pulse Rate 100 88 85 Respiratory Rate 18 14 12 Blood Pressure 146/74 H 134/73 114/54 L Pulse Oximetry 98 97 98 Exam Const: General: cooperative and healthy appearing Resp: Effort & Inspection: normal respiratory effort and able to speak in complete sentences Auscultation: clear to auscultation bilaterally Cardio: Rate: regular rate Rhythm: regular rhythm GI: Inspection: normal to inspection GI Palp: No No hepatosplenomegaly present Auscultation: normal bowel sounds Rectal Exam: deferred Skin: General skin exam: normal color Psych: Appearance: grossly normal Mental Status: mental status grossly normal H&P: Results Labs Labs: Short CBC 08/07/24 08/08/24 Range/Units 16:08 06:16 WBC 14.4 H (4.5-10.0) K/mm3 Hgb 14.4 13.5 (12.0-15.0) g/dL Hct 43.0 41.5 (37.0-47.0) % Plt Count 196 (150-375) k/mm3 BMP 08/08/24 06:16 Sodium 142 Potassium 3.6 Chloride 109 H Carbon Dioxide 24 BUN 10 D Creatinine 0.70 Glucose 110 Calcium 8.8 Liver Function 08/08/24 Range/Units 06:16 Total Bilirubin 0.8 (0.2-1.3) mg/dL AST 22 (14-36) U/L ALT 19 (6-35) U/L Alkaline Phosphatase 72 (38-126) U/L Albumin 3.9 (3.5-5.1) g/dL Assessment and Plan Assessment and plan (1) Abdominal pain: Qualifiers: Abdominal location: periumbilical Qualified Code(s): R10.33 - Periumbilical pain Code(s): R10.9 - Unspecified abdominal pain Status: Acute (2) Abnormal CT of the abdomen: Code(s): R93.5 - Abnormal findings on diagnostic imaging of other abdominal regions, including retroperitoneum Status: Acute (3) Acute lower GI bleeding: Code(s): K92.2 - Gastrointestinal hemorrhage, unspecified Status: Acute Assessment and Plan: differential diagnosis of rectal bleeding in this patient includes colorectal cancer, ischemic bowel disease, late onset inflammatory bowel disease. Patient deemed a good candidate for colonoscopy, will proceed.
--- NOTE | 2024-08-08 13:05 | P.PNAN_ITS ---
Anes - Initial Pre Proc Eval Procedure: Operation Date: 08/08/24 12:30 Proposed Procedures p Colonoscopy - oJsias Talbot MD Date/Time: 08/08/24 13:05 Surgeon: Ana Connelly PA-C Pre Op Diagnosis: GI bleed Patient Data Age: 78 Gender: F Height: 1.57 m Weight: 76 kg Last Vital Signs Temp 36.8 C 08/08/24 05:40 Pulse 85 08/08/24 05:40 Resp 12 08/08/24 05:40 BP 114/54 L 08/08/24 05:40 Pulse Ox 98 08/08/24 05:40 O2 Del Method Room Air 08/07/24 08:00 Allergies Allergy/AdvReac Type Severity Reaction Status Date / Time diltiazem Allergy Unknown Rash Verified 08/08/24 13:05 Penicillins Allergy Unknown Tachycardia Verified 08/08/24 13:05 prednisone Allergy Unknown Rash Verified 08/08/24 13:05 Contrast Media Allergy Mild RASH Uncoded 08/08/24 13:05 Home Medications Medication Instructions Recorded Confirmed Type calcium carbonate (Calcium 500) 500 mg PO DAILY 04/13/23 08/07/24 History mecobalamin (vitamin B12) 1,000 1,000 mcg PO DAILY 04/13/23 08/07/24 History mcg chewable tablet lsyohwbu-[id number] 8 mg-folic 400 1 tablet PO DAILY 04/23/23 08/07/24 History mcg-K 50 mcg-lutein 300 mcg tablet (Centrum Silver Women) lorazepam 0.5 mg tablet 0.5 mg PO Q8H PRN anxiety #90 ea 05/03/23 08/07/24 Rx amlodipine 2.5 mg tablet 2.5 mg PO DAILY #90 tabs 10/13/23 08/07/24 Rx lisinopril 40 mg tablet 40 mg PO DAILY #90 tabs 04/29/24 08/07/24 Rx Laboratory Tests 08/07/24 08/08/24 16:08 06:16 WBC 14.4 H K/mm3 (4.5-10.0) RBC 4.38 M/mm3 (4.2-5.4) Hgb 14.4 g/dL 13.5 g/dL (12.0-15.0) (12.0-15.0) Hct 43.0 % 41.5 % (37.0-47.0) (37.0-47.0) MCV 94.7 fl (80-100) MCH 30.8 pg (26-34) MCHC 32.5 g/dl (32-36) RDW 13.1 % (11.5-14.5) Plt Count 196 k/mm3 (150-375) MPV 10.9 H fl (7.4-10.4) Immature Gran % (Auto) 0.6 H % (0-0.5) Neut % (Auto) 81.3 H % (45.5-73.1) Lymph % (Auto) 11.2 L % (18.3-44.2) [place] % (Auto) 5.7 % (2.6-8.5) Eos % (Auto) 0.6 % (0-4.4) Baso % (Auto) 0.6 % (0.2-1.2) Lymph # (Auto) 1.61 K/mm3 (0.9-3.2) [place] # (Auto) 0.8 H K/mm3 (0.1-0.6) Eos # (Auto) 0.1 K/mm3 (0-0.3) Baso # (Auto) 0.1 K/mm3 (0.0-0.1) Abs Immat Gran (auto) 0.08 H K/mm3 (0.00-0.031) Absolute Neuts (auto) 11.8 H K/mm3 (1.3-6.7) Absolute Nucleated RBC 0.000 K/mm3 (0.0-0.012) Nucleated RBC % 0.0 % (0.0-0.2) Sodium 142 mmol/L (137-145) Potassium 3.6 mmol/L (3.4-5.0) Chloride 109 H mmol/L (98-107) Carbon Dioxide 24 mmol/L (22-30) Anion Gap 9 mmol/L (4-12) BUN 10 D mg/dL (7-17) Creatinine 0.70 mg/dL (0.7-1.0) Estim Creat Clear Calc 55 ml/min Estimated GFR > 60 (59 - ) Glucose 110 mg/dL (65-110) Calcium 8.8 mg/dL (8.4-10.2) Total Bilirubin 0.8 mg/dL (0.2-1.3) AST 22 U/L (14-36) ALT 19 U/L (6-35) Alkaline Phosphatase 72 U/L (38-126) Total Protein 7.0 g/dL (6.3-8.2) Albumin 3.9 g/dL (3.5-5.1) Patient hx anesthesia problems: none Family hx anesthesia problems: none Results Review: All pre-operative results and documents have been reviewed as part of the pre- operative evaluation. [facility] Past Medical History Medical History Anxiety Benign hypertension (~06/13/18) Ganglion cyst of finger of right hand Hypertension Left knee DJD Right knee DJD Shingles Vitamin B12 deficiency Surgical History Surgical History History of cataract extraction Hx of hysterectomy, total Hx of tonsillectomy Family History Family History Father Hypertension Family history of malignant neoplasm Grandparent Hypertension Mother Family history of malignant neoplasm of uterus Other Carcinoma of colon Family history of malignant neoplasm of breast in first degree relative Social History Social History Social History: She lives in [place] with her of 57 years. They raised 2 sons and 1 daughter. She worked as a confidential secretary but retired in 2006. She is a lifelong nonsmoker and does not drink alcohol or use illicit substances. She is independent activities of daily living. Code status: Full code Surrogate decision maker: Abiel Cramer () Smoking status: Never smoker Second hand tobacco smoke exposure: No Alcohol intake: never Alcohol use details: consumes 1 glass of wine rarely Substance use: never Substance use type: does not use Do You Feel Safe in your Home?: Yes Lack of Transportation: No Lack of Food: Never True Current Housing: I Have Housing Concerned About Future Housing: No Difficulty Paying Gas/Electric Bills: No Difficulty Paying for Meds: No Currently Unemployed: No Education: High School Diploma/GED Difficulty w/ Childcare or Family Care: No Living arrangements: with family Gender identity (if verbalized by the patient): Female Sexual Orientation (if Verbalized by the Patient): Straight or Heterosexual Spiritual care concerns: No Agree to blood products: Yes Anes - Eval Final PreProcedure Day of Procedure 08/08/24 13:05 Patient weight: overweight Heart: regular rate and rhythm Lungs: clear to auscultation Airway: Mallampati scale class II Neurological: alert and oriented Last oral intake: >/= 8 hours ASA classification: II Emergent: no Anesthetic plan: proceed Anesthesia type and monitoring: general GIVS and standard monitoring Results Review: All pre-operative results and documents have been reviewed as part of the pre- operative evaluation. Informed Consent: The patient's anesthetic plan and its attendant risks and benefits were discussed with the patient/family/POA. Questions were solicited and answers provided to the satisfaction of the patient/family/POA.
[2024-08-08] MEDS: LACTATED RINGERS 1,000 ML 150 ML IV CONT (13:09)
--- NOTE | 2024-08-08 13:23 | P.HP_ITS ---
H&P: HPI History of Present Illness Date/Time: 08/08/24 13:23 Chief Complaint: Rectal bleeding PMFSH Past Medical History Medical History Anxiety Benign hypertension (~06/13/18) Ganglion cyst of finger of right hand Hypertension Left knee DJD Right knee DJD Shingles Vitamin B12 deficiency Surgical History Surgical History History of cataract extraction Hx of hysterectomy, total Hx of tonsillectomy Family History Family History Father Hypertension Family history of malignant neoplasm Grandparent Hypertension Mother Family history of malignant neoplasm of uterus Other Carcinoma of colon Family history of malignant neoplasm of breast in first degree relative Social History Social History Social History: She lives in [place] with her of 57 years. They raised 2 sons and 1 daughter. She worked as a medical unit secretary but retired in 2006. She is a lifelong nonsmoker and does not drink alcohol or use illicit substances. She is independent activities of daily living. Code status: Full code Surrogate decision maker: Abiel Cramer () Smoking status: Never smoker Second hand tobacco smoke exposure: No Alcohol intake: never Alcohol use details: consumes 1 glass of wine rarely Substance use: never Substance use type: does not use Do You Feel Safe in your Home?: Yes Lack of Transportation: No Lack of Food: Never True Current Housing: I Have Housing Concerned About Future Housing: No Difficulty Paying Gas/Electric Bills: No Difficulty Paying for Meds: No Currently Unemployed: No Education: High School Diploma/GED Difficulty w/ Childcare or Family Care: No Living arrangements: with family Gender identity (if verbalized by the patient): Female Sexual Orientation (if Verbalized by the Patient): Straight or Heterosexual Spiritual care concerns: No Agree to blood products: Yes Meds Home Medications and Allergies Home Medications Medication Instructions Recorded Confirmed Type calcium carbonate (Calcium 500) 500 mg PO DAILY 04/13/23 08/07/24 History mecobalamin (vitamin B12) 1,000 1,000 mcg PO DAILY 04/13/23 08/07/24 History mcg chewable tablet winwjoxc-obkb-hzgg 8 mg-folic 400 1 tablet PO DAILY 04/23/23 08/07/24 History mcg-K 50 mcg-lutein 300 mcg tablet (Centrum Silver Women) lorazepam 0.5 mg tablet 0.5 mg PO Q8H PRN anxiety #90 ea 05/03/23 08/07/24 Rx amlodipine 2.5 mg tablet 2.5 mg PO DAILY #90 tabs 10/13/23 08/07/24 Rx lisinopril 40 mg tablet 40 mg PO DAILY #90 tabs 04/29/24 08/07/24 Rx Allergies Allergy/AdvReac Type Severity Reaction Status Date / Time diltiazem Allergy Unknown Rash Verified 08/08/24 13:05 Penicillins Allergy Unknown Tachycardia Verified 08/08/24 13:05 prednisone Allergy Unknown Rash Verified 08/08/24 13:05 Contrast Media Allergy Mild RASH Uncoded 08/08/24 13:05 Vital Signs Vital Signs - 24 hr 08/07/24 14:00 08/07/24 22:00 08/08/24 05:40 Temperature 96.7 F L 97.3 F L 98.3 F Pulse Rate 100 88 85 Respiratory Rate 18 14 12 Blood Pressure 146/74 H 134/73 114/54 L Pulse Oximetry 98 97 98 Oxygen Delivery 08/08/24 13:07 Temperature 96.8 F L Pulse Rate 91 Respiratory Rate 18 Blood Pressure 149/83 H Pulse Oximetry 98 Oxygen Delivery Room Air H&P: Results Labs Labs: Short CBC 08/07/24 08/08/24 Range/Units 16:08 06:16 WBC 14.4 H (4.5-10.0) K/mm3 Hgb 14.4 13.5 (12.0-15.0) g/dL Hct 43.0 41.5 (37.0-47.0) % Plt Count 196 (150-375) k/mm3 [facility] 08/08/24 06:16 Sodium 142 Potassium 3.6 Chloride 109 H Carbon Dioxide 24 BUN 10 D Creatinine 0.70 Glucose 110 Calcium 8.8 Liver Function 08/08/24 Range/Units 06:16 Total Bilirubin 0.8 (0.2-1.3) mg/dL AST 22 (14-36) U/L ALT 19 (6-35) U/L Alkaline Phosphatase 72 (38-126) U/L Albumin 3.9 (3.5-5.1) g/dL
--- NOTE | 2024-08-08 14:00 | WPDGIPROGNO ---
Progress Note: A&P Assessment and Plan (1) Acute lower GI bleeding: Code(s): K92.2 - Gastrointestinal hemorrhage, unspecified Status: Acute (2) Abnormal CT of the abdomen: Code(s): R93.5 - Abnormal findings on diagnostic imaging of other abdominal regions, including retroperitoneum Status: Acute (3) Ischemic colitis: Code(s): K55.9 - Vascular disorder of intestine, unspecified Status: Acute Assessment and Plan: The management of this condition is purely supportive. There is no specific medication. I suggest discontinuing pantoprazole says this is and lower GI bleeding. If her condition is stable and there is no further bleeding she can be discharged in 48 hours. We will continue to follow. Subjective Date/time seen: 08/08/24 14:00 Interval history: see colonoscopy report. Changes compatible with ischemic colitis. Exam Const: General: cooperative and healthy appearing Resp: Effort & Inspection: normal respiratory effort and able to speak in complete sentences Auscultation: clear to auscultation bilaterally Cardio: Rate: regular rate Rhythm: regular rhythm GI: Inspection: normal to inspection GI Palp: No No hepatosplenomegaly present Auscultation: normal bowel sounds Rectal Exam: deferred Skin: General skin exam: normal color Psych: Appearance: grossly normal Mental Status: mental status grossly normal Objective Data Vital Signs Vital Signs: Vital Signs - 24 hr 08/07/24 22:00 08/08/24 05:40 08/08/24 13:07 Temperature 97.3 F L 98.3 F 96.8 F L Pulse Rate 88 85 91 Respiratory Rate 14 12 18 Blood Pressure 134/73 114/54 L 149/83 H Pulse Oximetry 97 98 98 Oxygen Delivery Room Air Intake/Output Intake/Output: Intake & Output 08/06/24 08/06/24 08/07/24 08/08/24 00:59 23:59 23:59 23:59 Intake Total 1420 677.5 Output Total 1000 1 Balance 420 676.5 Meds/Results Medications: Active Medications Generic Name Dose Route Start Last Admin Trade Name Freq PRN Reason Stop Dose Admin Amlodipine Besylate 2.5 mg 08/07/24 09:00 08/07/24 09:47 Amlodipine Besylate 2.5 Mg Tablet PO 2.5 mg DAILY VALENCIA Administration Calcium Carbonate 200 mg 08/07/24 09:00 08/07/24 09:47 Calcium Carbonate (Tums) 500 Mg (200 Mg Elemental) PO 200 mg DAILY VALENCIA Administration Ceftriaxone Sodium 2 gm in 100 mls @ 200 mls/hr 08/08/24 16:00 Rocephin 2 Gm/Ns 100 Ml IVPB Q24H VALENCIA Lactated Ringer's 1,000 mls @ 150 mls/hr 08/08/24 13:10 08/08/24 13:50 Lr - Lactated Ringers Iv IV CONT 150 mls/hr .[id number] VALENCIA Infusion Lisinopril 40 mg 08/07/24 09:00 08/07/24 09:47 Lisinopril 20 Mg Tablet PO 40 mg DAILY VALENCIA Administration Lorazepam 0.5 mg 08/07/24 04:45 Lorazepam (*Crx) 0.5 Mg Tablet PO Q8H PRN anxiety Metronidazole 500 mg 08/08/24 14:00 Metronidazole 500 Mg Tablet PO Q8HR VALENCIA Morphine Sulfate 2 mg 08/06/24 22:04 Morphine Sulfate (*Crx) 2 Mg/Ml Inj IV PUSH Q2H PRN Pain Rated 7-10 Pantoprazole Sodium 40 mg 08/07/24 09:00 08/07/24 20:07 Pantoprazole 40 Mg Tablet PO 40 mg Q12HR VALENCIA Administration Radiology Results: ITS Impressions Abdomen/Pelvis CT 08/06/24 20:11 IMPRESSION: Prominent mural thickening of long segment of distal descending and proximal sigmoid colon, with pericolic fat infiltration, suspicious for colon cancer. Diverticulitis is less likely. 3 x 3.3 cm lower pole exophytic left renal nonspecific mass 2.5 x 3.3 cm anterolateral upper pole left renal heterogeneous solid mass lesion, suspicious for hypernephroma. Consider further evaluation with MRI. Pinpoint nonobstructing left renal calculi Minimal diverticulosis of the sigmoid colon Abdomen MRI 08/07/24 14:19 IMPRESSION: 1. Benign cysts in the kidneys. 2. Wall thickening of the sigmoid colon and distal descending colon, consistent with colitis versus malignancy. 3. Small volume of pelvic ascites. Labs Labs: Laboratory Results - last 24 hr 08/07/24 08/08/24 16:08 06:16 WBC 14.4 H RBC 4.38 Hgb 14.4 13.5 Hct 43.0 41.5 MCV 94.7 MCH 30.8 MCHC 32.5 RDW 13.1 Plt Count 196 MPV 10.9 H Immature Gran % (Auto) 0.6 H Neut % (Auto) 81.3 H Lymph % (Auto) 11.2 L [place] % (Auto) 5.7 Eos % (Auto) 0.6 Baso % (Auto) 0.6 Lymph # (Auto) 1.61 [place] # (Auto) 0.8 H Eos # (Auto) 0.1 Baso # (Auto) 0.1 Abs Immat Gran (auto) 0.08 H Absolute Neuts (auto) 11.8 H Absolute Nucleated RBC 0.000 Nucleated RBC % 0.0 Sodium 142 Potassium 3.6 Chloride 109 H Carbon Dioxide 24 Anion Gap 9 BUN 10 D Creatinine 0.70 Estim Creat Clear Calc 55 Estimated GFR > 60 Glucose 110 Calcium 8.8 Total Bilirubin 0.8 AST 22 ALT 19 Alkaline Phosphatase 72 Total Protein 7.0 Albumin 3.9
[2024-08-08] MEDS: CALCIUM CARBONATE (TUMS) 500 MG (200 MG ELEMENTAL) PO (15:07)
[2024-08-08] MEDS: metroNIDAZOLE 500 MG TABLET PO ×2 (15:07→20:45)
[2024-08-08] MEDS: amLODIPine BESYLATE 2.5 MG TABLET PO (15:07)
[2024-08-08] MEDS: lisinopriL 20 MG TABLET 40 MG PO (15:07)
[2024-08-08] MEDS: cefTRIAXone 2 GM/NS 100 ML 2 GM/100 ML BAG IVPB (17:19)
[2024-08-09] MEDS: metroNIDAZOLE 500 MG TABLET PO ×3 (05:13→21:55)
[2024-08-09 05:59] VITALS: BP 120/54; PULSE 73; RESP 12; TEMP 36.6; O2SAT 97
[2024-08-09 06:27] LABS: Basophils Absolute Auto 0.1 K/mm3 (0.0-0.1); Eosinophils Absolute Auto 0.3 K/mm3 (0-0.3); Eosinophils Percent Auto 2.9 % (0-4.4); Hematocrit 41.3 % (37.0-47.0); Hemoglobin 13.5 g/dL (12.0-15.0); Immature Granulocyte Absolute 0.03 K/mm3 (0.00-0.031); Immature Granulocyte Percent A 0.3 % (0-0.5); Lymphocytes Absolute Auto 1.84 K/mm3 (0.9-3.2); Mean Corpuscular HGB Conc 32.7 g/dl (32-36); Mean Corpuscular Hemoglobin 30.8 pg (26-34); Mean Corpuscular Volume 94.3 fl (80-100); Mean Platelet Volume 11.1 fl (7.4-10.4); Monocytes Absolute Auto 0.5 K/mm3 (0.1-0.6); Monocytes Percent Auto 5.8 % (2.6-8.5); Neutrophils Absolute Auto 6.1 K/mm3 (1.3-6.7); Platelet Count Result 194 k/mm3 (150-375); Red Blood Count 4.38 M/mm3 (4.2-5.4); White Blood Count 8.8 K/mm3 (4.5-10.0)
[2024-08-09 06:35] LABS: Alanine Aminotransferase 18 U/L (6-35); Albumin Level 3.7 g/dL (3.5-5.1); Alkaline Phosphatase 79 U/L (38-126); Anion Gap 7 mmol/L (4-12); Aspartate Amino Transferase 22 U/L (14-36); Bilirubin,Total 0.6 mg/dL (0.2-1.3); Blood Urea Nitrogen 14 mg/dL (7-17); Calcium 8.5 mg/dL (8.4-10.2); Carbon Dioxide 24 mmol/L (22-30); Chloride 107 mmol/L (98-107); Estimated CRCL calculation 49 ml/min; Estimated Glomerular Filt Rate > 60; Glucose 100 mg/dL (65-110); Potassium 3.2 mmol/L (3.4-5.0); Sodium 138 mmol/L (137-145)
[2024-08-09 08:27] VITALS: O2SAT 97
[2024-08-09] MEDS: CALCIUM CARBONATE (TUMS) 500 MG (200 MG ELEMENTAL) PO (08:29)
[2024-08-09] MEDS: POTASSIUM CHLORIDE 20 MEQ ER TABLET 40 MEQ PO (08:29)
[2024-08-09] MEDS: amLODIPine BESYLATE 2.5 MG TABLET PO (08:29)
[2024-08-09] MEDS: lisinopriL 20 MG TABLET 40 MG PO (08:30)
--- NOTE | 2024-08-09 11:28 | PM.IMPN ---
Progress Note: A&P Assessment and Plan (1) Acute lower GI bleeding: Code(s): K92.2 - Gastrointestinal hemorrhage, unspecified Status: Acute Assessment and Plan: Patient has bright red blood per rectum and CT scan findings concerning for possible malignancy. However differential does include colitis. Patient does have mild leukocytosis. Patient is not having fever or other signs of infection. She has no risk factors for antibiotic associated diarrhea that would lead to gross hematochezia. Colonoscopy 02/03/2013 showed internal hemorrhoids and mild colitis in the sigmoid colon.: Biopsies were consistent with mild chronic gastritis as seen with ischemic colitis. - Denies overuse of NSAIDs and not on any anticoagulation - CT abdomen/pelvis: Prominent mural thickening of long segment of distal descending and proximal sigmoid colon, with pericolic fat infiltration, suspicious for colon cancer. Diverticulitis is less likely. 3 x 3.3 cm lower pole exophytic left renal nonspecific mass 2.5 x 3.3 cm anterolateral upper pole left renal heterogeneous solid mass lesion, suspicious for hypernephroma. Consider further evaluation with MRI. Pinpoint nonobstructing left renal calculi Minimal diverticulosis of the sigmoid colon - Diet: Full liquid - Antibiotics for possible colitis: Rocephin and Flagyl started on 08/07. Rocephin dose increased to 2 g daily given her increase in WBC. - WBC improved from 14.4 to 8.8 today. - Monitor serum electrolytes, CBC, hemoglobin/hematocrit q.8 hours. If hemoglobin drops below 7 transfuse packed red blood cells - Monitor for bloody bowel movements,chest pain,SOB or dizziness/lightheadedness - DVT Px: SCDs, Avoid anti-coagulations - Gastroenterology has been consulted. Colonoscopy: Sigmoiditis, colonic polyps (biopsied and Benign), and internal hemorrhoids The management of this condition is purely supportive. If her condition is stable and there is no further bleeding she can be discharged in 48 hours. (2) Abnormal CT of the abdomen: Code(s): R93.5 - Abnormal findings on diagnostic imaging of other abdominal regions, including retroperitoneum Status: Acute Assessment and Plan: -CT abdomen/pelvis: Prominent mural thickening of long segment of distal descending and proximal sigmoid colon, with pericolic fat infiltration, suspicious for colon cancer. Diverticulitis is less likely. 3 x 3.3 cm lower pole exophytic left renal nonspecific mass 2.5 x 3.3 cm anterolateral upper pole left renal heterogeneous solid mass lesion, suspicious for hypernephroma. Consider further evaluation with MRI. Pinpoint nonobstructing left renal calculi Minimal diverticulosis of the sigmoid colon -MRI ordered for evaluation to further delineate mass Benign cysts in the kidneys. Wall thickening of the sigmoid colon and distal descending colon, consistent with colitis versus malignancy. Small volume of pelvic ascites. (3) Abnormal finding of kidney: Code(s): R39.9 - Unspecified symptoms and signs involving the genitourinary system Status: Acute Assessment and Plan: -See above, #[address] of the abdomen -BUN/Cr WNL. -UA had trace non hemolyzed blood and 3-5 RBC, otherwise unremarkable -MRI ordered for evaluation to further delineate mass. Benign cysts in the kidneys. (4) Primary hypertension: Code(s): I10 - Essential (primary) hypertension Status: Acute Assessment and Plan: Chronic, continue home medications. - Amlodipine 2.5 mg daily - Lisinopril 40 mg daily - Monitor (5) Hypokalemia: Code(s): E87.6 - Hypokalemia Status: Acute Assessment and Plan: - Potassium 3.2 today. - Potassium 40 meq PO x1 given today. - Monitor labs. Subjective Date/time seen: 08/09/24 11:28 Interval history: Patient denies chest pain, palpitations, headache, dizziness, nausea, vomiting, or blood in stools. Patient reports 3 loose bowel movements today. Review of Systems Review of Systems: All systems reviewed & are unremarkable except as noted in HPI and below Exam Const: General: comfortable and no acute distress Resp: Effort & Inspection: normal respiratory effort Auscultation: clear to auscultation bilaterally Cardio: Rate: regular rate Rhythm: regular rhythm GI: GI Palp: Yes Soft to palpation Auscultation: normal bowel sounds Neuro: Speech: normal speech Extrem: General: normal to inspection Psych: Mental Status: mental status grossly normal Affect: normal affect Objective Data Vital Signs Vital Signs: Vital Signs - 24 hr 08/08/24 13:07 08/08/24 13:52 08/08/24 14:02 Temperature 96.8 F L Pulse Rate 91 73 69 Respiratory Rate 18 16 15 Blood Pressure 149/83 H 123/59 L 112/64 Pulse Oximetry 98 100 98 Oxygen Delivery Room Air Room Air Room Air 08/08/24 14:12 08/08/24 14:40 08/08/24 22:00 Temperature 97.2 F L 98.9 F Pulse Rate 78 66 79 Respiratory Rate 17 16 12 Blood Pressure 136/83 145/64 H 136/82 Pulse Oximetry 98 100 97 Oxygen Delivery Room Air 08/09/24 05:59 08/09/24 08:27 Temperature 97.8 F Pulse Rate 73 Respiratory Rate 12 Blood Pressure 120/54 L Pulse Oximetry 97 97 Oxygen Delivery Room Air Intake/Output Intake/Output: Intake & Output 08/06/24 08/07/24 08/08/24 08/09/24 23:59 23:59 23:59 23:59 Intake Total 1420 1225.0 515 Output Total 1000 5 Balance 420 1220.0 515 Meds/Results Medications: Active Medications Generic Name Dose Route Start Last Admin Trade Name Freq PRN Reason Stop Dose Admin Amlodipine Besylate 2.5 mg 08/07/24 09:00 08/09/24 08:29 Amlodipine Besylate 2.5 Mg Tablet PO 2.5 mg DAILY VALENCIA Administration Calcium Carbonate 200 mg 08/07/24 09:00 08/09/24 08:29 Calcium Carbonate (Tums) 500 Mg (200 Mg Elemental) PO 200 mg DAILY VALENCIA Administration Ceftriaxone Sodium 2 gm in 100 mls @ 200 mls/hr 08/08/24 16:00 08/08/24 17:49 Rocephin 2 Gm/Ns 100 Ml IVPB Infused Q24H VALENCIA Infusion Lisinopril 40 mg 08/07/24 09:00 08/09/24 08:30 Lisinopril 20 Mg Tablet PO 40 mg DAILY VALENCIA Administration Lorazepam 0.5 mg 08/07/24 04:45 Lorazepam (*Crx) 0.5 Mg Tablet PO Q8H PRN anxiety Metronidazole 500 mg 08/08/24 14:00 08/09/24 05:13 Metronidazole 500 Mg Tablet PO 500 mg Q8HR VALENCIA Administration Morphine Sulfate 2 mg 08/06/24 22:04 Morphine Sulfate (*Crx) 2 Mg/Ml Inj IV PUSH Q2H PRN Pain Rated 7-10 Radiology Results: ITS Impressions Abdomen/Pelvis CT 08/06/24 20:11 IMPRESSION: Prominent mural thickening of long segment of distal descending and proximal sigmoid colon, with pericolic fat infiltration, suspicious for colon cancer. Diverticulitis is less likely. 3 x 3.3 cm lower pole exophytic left renal nonspecific mass 2.5 x 3.3 cm anterolateral upper pole left renal heterogeneous solid mass lesion, suspicious for hypernephroma. Consider further evaluation with MRI. Pinpoint nonobstructing left renal calculi Minimal diverticulosis of the sigmoid colon Abdomen MRI 08/07/24 14:19 IMPRESSION: 1. Benign cysts in the kidneys. 2. Wall thickening of the sigmoid colon and distal descending colon, consistent with colitis versus malignancy. 3. Small volume of pelvic ascites. Labs Labs: Laboratory Results - last 24 hr 08/09/24 05:45 WBC 8.8 RBC 4.38 Hgb 13.5 Hct 41.3 MCV 94.3 MCH 30.8 MCHC 32.7 RDW 13.0 Plt Count 194 MPV 11.1 H Immature Gran % (Auto) 0.3 Neut % (Auto) 69.0 Lymph % (Auto) 21.0 [place] % (Auto) 5.8 Eos % (Auto) 2.9 Baso % (Auto) 1.0 Lymph # (Auto) 1.84 [place] # (Auto) 0.5 Eos # (Auto) 0.3 Baso # (Auto) 0.1 Abs Immat Gran (auto) 0.03 Absolute Neuts (auto) 6.1 Absolute Nucleated RBC 0.000 Nucleated RBC % 0.0 Sodium 138 Potassium 3.2 L Chloride 107 Carbon Dioxide 24 Anion Gap 7 BUN 14 Creatinine 0.80 Estim Creat Clear Calc 49 Estimated GFR > 60 Glucose 100 Calcium 8.5 Total Bilirubin 0.6 AST 22 ALT 18 Alkaline Phosphatase 79 Total Protein 7.0 Albumin 3.7 Quality VTE Prophylaxis VTE prophylaxis: mechanical ordered
[2024-08-09 14:00] VITALS: BP 150/84; PULSE 80; RESP 18; TEMP 36.6; O2SAT 98
[2024-08-09] MEDS: cefTRIAXone 2 GM/NS 100 ML 2 GM/100 ML BAG IVPB (16:25)
[2024-08-09 21:38] VITALS: BP 149/77; PULSE 89; RESP 16; TEMP 36.3; O2SAT 96
[2024-08-09 21:51] VITALS: O2SAT 96
[2024-08-10 05:00] VITALS: BP 143/74; PULSE 85; RESP 18; TEMP 37; O2SAT 96
[2024-08-10] MEDS: metroNIDAZOLE 500 MG TABLET PO ×2 (05:04→13:25)
[2024-08-10 06:38] LABS: Basophils Absolute Auto 0.1 K/mm3 (0.0-0.1); Basophils Percent Auto 1.2 % (0.2-1.2); Eosinophils Absolute Auto 0.2 K/mm3 (0-0.3); Eosinophils Percent Auto 2.6 % (0-4.4); Hemoglobin 12.7 g/dL (12.0-15.0); Immature Granulocyte Absolute 0.02 K/mm3 (0.00-0.031); Immature Granulocyte Percent A 0.3 % (0-0.5); Lymphocytes Absolute Auto 1.52 K/mm3 (0.9-3.2); Lymphocytes Percent Auto 22.1 % (18.3-44.2); Mean Corpuscular HGB Conc 33.4 g/dl (32-36); Mean Corpuscular Hemoglobin 30.8 pg (26-34); Mean Corpuscular Volume 92.2 fl (80-100); Monocytes Absolute Auto 0.4 K/mm3 (0.1-0.6); Monocytes Percent Auto 5.8 % (2.6-8.5); Neutrophils Absolute Auto 4.7 K/mm3 (1.3-6.7); Platelet Count Result 205 k/mm3 (150-375); Red Blood Count 4.12 M/mm3 (4.2-5.4); Red Cell Distribution Width 12.9 % (11.5-14.5); White Blood Count 6.9 K/mm3 (4.5-10.0)
[2024-08-10 06:55] LABS: Alanine Aminotransferase 22 U/L (6-35); Albumin Level 3.4 g/dL (3.5-5.1); Alkaline Phosphatase 67 U/L (38-126); Anion Gap 4 mmol/L (4-12); Aspartate Amino Transferase 38 U/L (14-36); Bilirubin,Total 0.6 mg/dL (0.2-1.3); Blood Urea Nitrogen 14 mg/dL (7-17); Calcium 8.3 mg/dL (8.4-10.2); Carbon Dioxide 25 mmol/L (22-30); Chloride 106 mmol/L (98-107); Estimated CRCL calculation 55 ml/min; Estimated Glomerular Filt Rate > 60; Glucose 95 mg/dL (65-110); Potassium 3.5 mmol/L (3.4-5.0); Sodium 135 mmol/L (137-145)
[2024-08-10] MEDS: lisinopriL 20 MG TABLET 40 MG PO (09:02)
[2024-08-10] MEDS: CALCIUM CARBONATE (TUMS) 500 MG (200 MG ELEMENTAL) PO (09:02)
[2024-08-10] MEDS: amLODIPine BESYLATE 2.5 MG TABLET PO (09:03)
--- NOTE | 2024-08-10 11:13 | P.DS_ITS ---
DS: Admitting Diagnosis Discharge Date 08/10/2024 Admitting Diagnosis Rectal bleeding. DS: Discharge Diagnosis Discharge Diagnosis (1) Acute lower GI bleeding: Code(s): K92.2 - Gastrointestinal hemorrhage, unspecified Status: Acute (2) Hemorrhoids: Qualifiers: Hemorrhoid type: unspecified Qualified Code(s): K64.9 - Unspecified hemorrhoids Code(s): K64.9 - Unspecified hemorrhoids Status: Acute (3) Polyp of colon: Code(s): K63.5 - Polyp of colon Status: Acute (4) Sigmoiditis: Code(s): K52.9 - Noninfective gastroenteritis and colitis, unspecified Status: Acute DS: Summary Hospital Course Hospital Course: Colonoscopy completed 08/08/24 showed: Severe segmental colitis was seen in the sigmoid colon. The colitis had edematous, erythematous, friable ulcerative changes. The colitis had severe edematous, erythematous, friable and ulcerative changes, between 25 and 35 cm from the anal verge. There were two small sessile polyps observed in the proximal transverse and in the distal transverse. A cold snare polypectomy was performed. The polyps were completely ablated and retrieved successfully. A few medium-size uncomplicated internal hemorrhoids were seen in the rectum. Patient received IV antibiotics and was transitioned to oral antibiotics. WBC improved from 14.4 to 6.9. Potassium supplemented. MRI showed benign cyst on kidneys. Status at Discharge Functional status at discharge: independent ambulation Overall status at discharge: patient is progressing back to baseline Time Spent with Patient Time attestation: Total time spent providing and/or coordinating discharge services: Time spent: Greater than 30 minutes Exam Const: General: comfortable and no acute distress Eyes: Sclera: sclerae normal Resp: Effort & Inspection: normal respiratory effort Auscultation: clear to auscultation bilaterally Cardio: Rate: regular rate Rhythm: regular rhythm GI: GI Palp: Yes Soft to palpation Auscultation: normal bowel sounds Neuro: General: gait normal Extrem: General: normal to inspection Psych: Mental Status: mental status grossly normal Affect: normal affect DS: Data Data Completed and Pending Completed studies during hospitalization: Pending at discharge 08/08/24 13:51 Surgical [PTH] Routine Labs on day of discharge: Labs from last 24 hours 08/10/24 06:23 WBC 6.9 RBC 4.12 L Hgb 12.7 Hct 38.0 MCV 92.2 MCH 30.8 MCHC 33.4 RDW 12.9 Plt Count 205 MPV 11.0 H Immature Gran % (Auto) 0.3 Neut % (Auto) 68.0 Lymph % (Auto) 22.1 [place] % (Auto) 5.8 Eos % (Auto) 2.6 Baso % (Auto) 1.2 Lymph # (Auto) 1.52 [place] # (Auto) 0.4 Eos # (Auto) 0.2 Baso # (Auto) 0.1 Abs Immat Gran (auto) 0.02 Absolute Neuts (auto) 4.7 Absolute Nucleated RBC 0.000 Nucleated RBC % 0.0 Sodium 135 L Potassium 3.5 Chloride 106 Carbon Dioxide 25 Anion Gap 4 BUN 14 Creatinine 0.70 Estim Creat Clear Calc 55 Estimated GFR > 60 Glucose 95 Calcium 8.3 L Total Bilirubin 0.6 AST 38 H ALT 22 Alkaline Phosphatase 67 Total Protein 6.0 L Albumin 3.4 L Discharge Plan Discharge Attending physician on discharge: Wander Montes De Oca Discharging Clinician: Lesley Fernando Anticipated Discharge Date/Time: 08/10/24 12:00 Patient Disposition: Home, Self-Care Activity: february shower Diet: low fiber Discharge Instructions: * Either take a probiotic or eat yogurt for the next week. * Report if you develop in blood in stool, fever, abdominal pain, nausea, or vomiting. Patient Instructions: Antibiotic Form, Low Fiber Diet (DC), Pain Management (DC) Stand Alone Forms: General Discharge Information Follow-up/Referrals: Radha Irene MD [Primary Care Provider] - 1 Week Josias Talbot MD [Physician] - Discharge Medications: New metronidazole 500 mg Tablet 500 mg PO Q8HR Qty: 11 0RF levofloxacin 750 mg tablet 750 mg PO DAILY Qty: 3 0RF Rx Instructions: Start on Wednesday08/11/24. Continued Centrum Silver Women 8 mg iron-400 mcg-50 mcg tablet 1 tablet PO DAILY mecobalamin (vitamin B12) 1,000 mcg tablet,chewable 1,000 mcg PO DAILY calcium carbonate [Calcium 500] 500 mg calcium (1,250 mg) tablet,chewable 500 mg PO DAILY amlodipine 2.5 mg tablet 2.5 mg PO DAILY Qty: 90 3RF lorazepam 0.5 mg tablet 0.5 mg PO Q8H PRN (Reason: anxiety) Qty: 90 0RF lisinopril 40 mg tablet 40 mg PO DAILY Qty: 90 1RF Date of admission: 08/06/24 22:05 Primary Care Provider: Radha Irene Admitting Provider: Sadie Pierre Attending physician on admission: Ana Connelly Condition: Stable Hospitalist MIPS Heart Failure (Exclusion) Patient has history of Heart Transplant or Left Ventricular Assistive Device?: No IF YES, STOP HERE Heart Failure (Qualifier) Patient has current or prior documentation of LVEF less than or equal to 40%, or mod/servere depressed LVSF?: No IF NO, STOP HERE
[2024-08-10] MEDS: levoFLOXacin 750 MG TABLET PO (12:16)
== END 2024-08-10 13:40 | disposition home or self-care (01) ==
LOC: ANHED 22:04 → ANH3MEDSUR 23:06
PROVIDERS: Internal Medicine Gastroenterology; Student in an Organized Health Care Education/Training Program; Admitting Provider Internal Medicine; Emergency Provider Physician Assistant; PCP Family Medicine; Visit Provider Nurse Practitioner Family
PROC: 0DJD8ZZ Inspection of Lower Intestinal Tract, Via Natural or Artificial Opening Endoscopic (ICD-10-PCS; CPT 45378; principal; 2024-08-08 12:30)
DX: K52.9 Noninfective gastroenteritis and colitis, unspecified (principal); D12.3 Benign neoplasm of transverse colon; K64.8 Other hemorrhoids; R93.5 Abnormal findings on diagnostic imaging of other abdominal regions, including retroperitoneum; E87.6 Hypokalemia; N28.1 Cyst of kidney, acquired; E53.8 Deficiency of other specified B group vitamins; I10 Essential (primary) hypertension; F40.240 Claustrophobia; F41.9 Anxiety disorder, unspecified; F32.A Depression, unspecified; M67.441 Ganglion, right hand; M17.0 Bilateral primary osteoarthritis of knee; Z90.710 Acquired absence of both cervix and uterus; Z98.49 Cataract extraction status, unspecified eye; Z88.0 Allergy status to penicillin; Z88.8 Allergy status to other drugs, medicaments and biological substances; Z91.041 Radiographic dye allergy status
CPT/HCPCS: 45385; 45380; 36415; 74176; 74183; 80048; 80053; 81003; 83605; 83690; 85014; 85018; 85025; 85610; 85730; 88305; 96361; 96365; 96366; 96368; 96375; 96376; 99285; A9270; A9577; G0378; J0696; J1836; J2003; J2060; J2470; J2704; J7030; J7120

== ENCOUNTER 2025-05-10 17:26 | Emergency (ER) | payer MEDICARE, SELFPAY ==
--- NOTE | 2025-05-10 17:32 | ED.SKABFB ---
HPI - Skin/Abscess/Foreign Bdy General Chief complaint: Skin/Abscess/Foreign Body Stated complaint: Bee Sting Time Seen by Provider: 05/10/25 17:34 Source: patient Mode of arrival: ambulatory Limitations: no limitations History of Present Illness HPI narrative: 79 y/o female presented for c/o left thumb swelling after a wasp sting yesterday. Pt was wearing gloves while pulling out weeds when she was stung. Pt applied baking soda paste, ice, and soaked in Epson salts, without improvement. Denies lip, tongue, or throat swelling, shortness of breath or wheezing. Related Data Home Medications ?Medication ?Instructions ?Recorded ?Confirmed ?Last Taken ?Type calcium carbonate (Calcium 500) 500 mg PO DAILY 04/13/23 04/24/25 Unknown History mecobalamin (vitamin B12) 1,000 1,000 mcg PO DAILY 04/13/23 04/24/25 Unknown History mcg chewable tablet [id number] 8 mg-folic 400 1 tablet PO DAILY 04/23/23 04/24/25 Unknown History mcg-K 50 mcg-lutein 300 mcg tablet (Centrum Silver Women) Allergies Allergy/AdvReac Type Severity Reaction Status Date / Time diltiazem Allergy Unknown Rash Verified 05/10/25 17:39 Penicillins Allergy Unknown Tachycardia Verified 05/10/25 17:39 prednisone Allergy Unknown Rash Verified 05/10/25 17:39 Contrast Media Allergy Mild RASH Uncoded 05/10/25 17:39 Review of Systems Review of Systems: CONSTITUTIONAL: Denies body aches, fever, chills, or sweats. EYES: Denies visual changes, redness, or discharge. ENT: Denies rhinorrhea, congestion CARDIOVASCULAR: Denies chest pain, palpitations, or edema. RESPIRATORY: Denies cough or dyspnea. GASTROINTESTINAL: Denies abdominal pain, nausea, vomiting, or diarrhea. SKIN: reports redness and swelling to left thumb MUSCULOSKELETAL: Denies back pain, joint pain, or myalgia. NEUROLOGIC: Denies headache, numbness, tingling, or weakness. [facility] Past Medical History Medical History Left knee DJD Right knee DJD Vitamin B12 deficiency Anxiety Hypertension Shingles Ganglion cyst of finger of right hand Benign hypertension (~06/13/18) Surgical History Surgical History Hx of tonsillectomy History of cataract extraction Hx of hysterectomy, total Family History Family History Father Hypertension Family history of malignant neoplasm Grandparent Hypertension Mother Family history of malignant neoplasm of uterus Other Carcinoma of colon Family history of malignant neoplasm of breast in first degree relative Social History Social History Social History: She lives in [place] with her of 57 years. They raised 2 sons and 1 daughter. She worked as a secretary office clerk but retired in 2006. She is a lifelong nonsmoker and does not drink alcohol or use illicit substances. She is independent activities of daily living. Code status: Full code Surrogate decision maker: Abiel Cramer () Smoking status: Never smoker Second hand tobacco smoke exposure: No Alcohol intake: never Alcohol use details: consumes 1 glass of wine rarely Substance use: never Substance use type: does not use Do You Feel Safe in your Home?: Yes Lack of Transportation: No Lack of Food: Never True Current Housing: I Have Housing Concerned About Future Housing: No Difficulty Paying Gas/Electric Bills: No Difficulty Paying for Meds: No Currently Unemployed: No Education: High School Diploma/GED Difficulty w/ Childcare or Family Care: No Living arrangements: with family Gender identity (if verbalized by the patient): Female Sexual Orientation (if Verbalized by the Patient): Straight or Heterosexual Spiritual care concerns: No Agree to blood products: Yes Comments At time of signature, I have reviewed and agree with nursing past medical, surgical, social and family history unless otherwise noted. Please see nursing chart for further information. There is no relevant family history pertinent to the presenting complaint Exam Narrative: GENERAL: Well-appearing HEAD: Normocephalic, atraumatic. EYES: conjunctivae clear, and EOMI. ENT: Mucous membranes moist. Oropharynx without edema, erythema or lesions. NECK: Supple. No lymphadenopathy CHEST: Clear to auscultation. HEART: Regular rate and rhythm. SKIN: Warm, dry. Left thumb swelling and erythema extending to wrist, with puncture site between nail bed and IP joint, scant clear drainage, CMS intact. NEURO: Alert and oriented x3. Course Course Emergency Course: Patient is aware of diagnosis, understands and agrees to treatment plan. Anticipatory guidance given. Patient agrees to follow-up as directed and is aware of reasons to seek care at the emergency department. Portions of this record may have been created with voice recognition software Level of Care: Express Care Visit Vital Signs Vital signs: Vital Signs Temperature 98.8 F 05/10/25 17:36 Pulse Rate 78 05/10/25 17:36 Respiratory Rate 16 05/10/25 17:36 Blood Pressure 167/87 H 05/10/25 17:36 Pulse Oximetry 98 05/10/25 17:36 Temperature 98.8 F 05/10/25 17:36 Pulse Rate 78 05/10/25 17:36 Respiratory Rate 16 05/10/25 17:36 Blood Pressure 167/87 H 05/10/25 17:36 Pulse Oximetry 98 05/10/25 17:36 Reviewed MDM - Skin/Abscess/Foreign Bdy MDM Narrative Medical decision making narrative: Discussed physical exam findings, pt declined steroid stating it causes palpitations. Will send abx at this time. Advised supportive measures and signs/symptoms to go to the ER. Pt is appropriate for outpt treatment and f/u. Differential Diagnosis Differential diagnosis: Likely abscess of skin or subcutaneous tissue, viral exanthem, dermatophytosis, urticaria, herpes zoster, cellulitis, eczema, insect bites, impetigo and contact dermatitis Discharge Plan Discharge Clinical Impression: Accidental insect sting Patient Disposition: Home Condition: Stable Instructions: Antibiotic Form, Insect Bite or Sting (ED) Additional Instructions: Keep the area clean and dry - cleanse with warm water and mild soap and allow to fully dry. Ok to apply neosporin or anti itch cream as needed Recommend Zyrtec or Claritin Elevate the hand and apply ice packs or cold compresses to reduce itching/swelling. Watch for worsening symptoms including pain, redness, swelling, streaking, pus/drainage, fever. Go to the ER with any of these symptoms or concerns. Follow up with primary care provider as needed. Patient Language: Ethiopian Prescriptions: New cephalexin 500 mg capsule 500 mg PO Q8H 5 Days Qty: 15 0RF No Action Centrum Silver Women 8 mg iron-400 mcg-50 mcg tablet 1 tablet PO DAILY mecobalamin (vitamin B12) 1,000 mcg tablet,chewable 1,000 mcg PO DAILY calcium carbonate [Calcium 500] 500 mg calcium (1,250 mg) tablet,chewable 500 mg PO DAILY clotrimazole-betamethasone 1-0.05 % cream 1 applic topical BID Qty: 45 0RF lorazepam 0.5 mg tablet 0.5 mg PO Q8H PRN (Reason: anxiety) Qty: 90 0RF amlodipine 2.5 mg tablet 2.5 mg PO DAILY Qty: 90 3RF lisinopril 40 mg tablet 40 mg PO DAILY Qty: 90 1RF Follow-up/Referrals: Radha Irene MD [Primary Care Provider] - Time of Disposition: 17:48
[2025-05-10 17:36] VITALS: BP 167/87; PULSE 78; RESP 16; TEMP 37.1; O2SAT 98
== END 2025-05-10 17:51 | disposition home or self-care (01) ==
PROVIDERS: Emergency Provider Nurse Practitioner Family; PCP Family Medicine
DX: T63.461A Toxic effect of venom of wasps, accidental (unintentional), initial encounter (principal); I10 Essential (primary) hypertension; M17.0 Bilateral primary osteoarthritis of knee; E53.8 Deficiency of other specified B group vitamins; F41.9 Anxiety disorder, unspecified
CPT/HCPCS: 99213; G0463

== ENCOUNTER 2025-05-29 07:14 | Outpatient (CLI) | payer MEDICARE, SELFPAY ==
--- NOTE | ~2025-05-29 | DEXA_ITS ---
Bone Density Report Name: ENDY ELMORE Age: 79 Sex: Female Ethnicity: White Date of : 1945 Indication: osteopenia; height loss; hysterectomy; Referring Provider: MARELY VILLAGOMEZ Study: Bone densitometry was performed. Exam Date: May 29, 2025 Accession number: [id number] Bone Density: Region BMD T-score Z-score Classification AP Spine(L1-L4) 0.968 -0.7 1.9 Normal Femoral Neck (Left) 0.665 -1.7 0.6 Osteopenia Total Hip (Left) 0.807 -1.1 0.9 Osteopenia Femoral Neck (Right) 0.616 -2.1 0.1 Osteopenia Total Hip (Right) 0.734 -1.7 0.3 Osteopenia Total Hip Mean 0.771 -1.4 0.6 Osteopenia World Health Organization criteria for BMD impression classify patients as: Normal (T-score at or above -1.0), Osteopenia (T-score between -1.0 and -2.5), or Osteoporosis (T-score at or below -2.5). 10-year Fracture Risk(1): Major Osteoporotic Fracture 15% Hip Fracture 4.1% Reported Risk Factors: [place] (), Neck BMD=0.616, BMI=30.9 (1) FRAX(R) Version 3.08. Fracture probability calculated for an untreated patient. Fracture probability may be lower if the patient has received treatment. Previous Exams: -- Region Exam Age BMD T-score BMD Change BMD Change Date g/cm2 vs Baseline vs Previous -- AP Spine (L1-L4) 05/29/2025 79 0.968 -0.7 -6.6%* -2.6%* 06/30/2022 76 0.993 -0.5 -4.1%* 2.2% 07/04/2012 66 0.972 -0.7 -6.2%* 4.0%* 06/20/2010 64 0.935 -1.0 -9.8%* -9.8%* 06/08/2007 61 1.036 -0.1 Total Hip(Left) 05/29/2025 79 0.807 -1.1 -10.6%* -7.4%* 06/30/2022 76 0.872 -0.6 -3.4%* 2.8% 07/04/2012 66 0.848 -0.8 -6.0%* 0.6% 06/20/2010 64 0.843 -0.8 -6.6%* -6.6%* 06/08/2007 61 0.902 -0.3 Total Hip(Right) 05/29/2025 79 0.734 -1.7 -13.3%* -1.6% 06/30/2022 76 0.747 -1.6 -11.9%* -1.1% 07/04/2012 66 0.755 -1.5 -10.8%* -4.5%* 06/20/2010 64 0.791 -1.2 -6.7%* -6.7%* 06/08/2007 61 0.847 -0.8 -- *Denotes significance at 95% confidence level, LSC for AP Spine = 0.022 g/cm2, LSC for Total Hip = 0.027 g/cm2 Clinical Information Provided by Patient: Has used the following medications: Vitamin D, Calcium Has the following medical conditions: Hysterectomy Patient maximum height was 62 Menopause Age: 58 No regular weight bearing exercise Drinks caffeinated beverages Onset of menses at age 13 Number of children 2 Impression: The patient has low bone mass, based on the Right Femoral Neck T-score. The patient has an estimated ten-year risk of hip fracture of 4.1% and an estimated ten-year risk of major fracture of 15%, based on the WHO FRAX algorithm. The BMD for the AP Spine (L1-L4) decreased, changing by -2.6% since the last DXA exam. The BMD for the Total Hip(Left) decreased, changing by -7.4% since the last DXA exam. Discussion: BONE DENSITY IS LOW AT ONE OR MORE SKELETAL SITES. THE PATIENT'S BMD AND CLINICAL RISK FACTORS CONTRIBUTE TO THIS PATIENT'S INCREASED RISK OF FRACTURE. This patient's lowest T-score is low at one or more skeletal sites. It meets the World Health Organization's (WHO) criteria for ?low bone mass? (T-score between -1.0 and -2.5). The patient's 10-year risk of hip fracture as calculated by FRAX exceeds the threshold where pharmacological therapy is recommended by the National Osteoporosis Foundation (NOF). However, all treatment decisions require clinical judgment and consideration of individual patient factors, including patient preferences, comorbidities, previous drug use, risk factors not captured in the FRAX model (e.g., frailty, falls, vitamin D deficiency, increased bone turnover, interval significant decline in bone density) and possible under or overestimation of fracture risk by FRAX. The patient should follow a healthful lifestyle (good nutrition with adequate calcium and vitamin D, and appropriate weight-bearing exercise). Follow-Up: Consider a repeat BMD and Vertebral Fracture Assessment (VFA) exam in 2 years or sooner if medically necessary, to reassess this patient's status. Reported by: AUGUST on 05/29/2025 8:15:00 AM. Reviewed, dictated and finalized at location A.
--- NOTE | ~2025-05-29 | MM_ITS ---
EXAMINATION: MM screening [facility] BI w gigi HISTORY: Screening TECHNIQUE: Craniocaudal and mediolateral oblique 3-D tomosynthesis images were obtained and synthetic 2-D images were generated. CAD analysis was submitted and interpreted. COMPARISON: Comparison to multiple prior studies sequentially, with oldest reviewed study dated 08/22/2018. BREAST PARENCHYMAL COMPOSITION: There are scattered areas of fibroglandular density. FINDINGS: There is no evidence of suspicious mass, calcification, or architectural distortion to suggest malignancy in either breast. Scattered benign-appearing calcifications are present. IMPRESSION: 1. No mammographic evidence of malignancy. 2. Recommend routine screening mammography in one year. BI-RADS Category 2: Benign finding(s). Reviewed, dictated and finalized at location C.
== END 2025-05-29 07:15 | disposition home or self-care (01) ==
LOC: MICIMG 07:15
PROVIDERS: PCP Family Medicine; Visit Provider Family Medicine
DX: Z12.31 Encounter for screening mammogram for malignant neoplasm of breast (principal); Z78.0 Asymptomatic menopausal state; M85.852 Other specified disorders of bone density and structure, left thigh; M85.851 Other specified disorders of bone density and structure, right thigh
CPT/HCPCS: 77063; 77067; 77080